=== PATIENT | male | born 1960 | race Caucasian/White ===

== ENCOUNTER 2023-11-09 15:51 | Inpatient (IN) | payer OTHER, SELFPAY ==
[2023-11-09] VITALS (16 sets, daily range): BP systolic 77–105; BP diastolic 52–68; BMI 22.4
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
[2023-11-09 13:13] LABS: Hematocrit 31.3 % (39.0-52.0); Hemoglobin 11.3 g/dL (13.0-18.0); Mean Corp Hgb Conc. 36.1 g/dL (33.0-37.0); Mean Corpuscular Hgb 29.5 pg (27.0-31.0); Mean Corpuscular Volume 81.7 fL (80.0-94.0); Mean Platelet Volume 8.2 fL (7.4-10.4); Platelet Count 134 10^3/uL (130-400); Red Blood Cell Count 3.83 10^6/uL (4.70-6.10); Red Cell Dist. Width 12.9 % (11.5-14.5)
[2023-11-09] MEDS: NSS 1000 IV ×3 (13:23→20:47)
[2023-11-09 13:26] LABS: ALT (SGPT) 25 U/L (0-50); AST (SGOT) 53 U/L (17-59); Albumin 3.9 g/dl (3.5-5.0); Alkaline Phosphatase 128 U/L (38-126); Blood Urea Nitrogen 14 mg/dl (9-20); Calcium 9.1 mg/dl (8.4-10.2); Carbon Dioxide 22 mmol/L (22-30); Chloride 91 mmol/L (98-107); Estimated Creatinine Clearance 81 ml/min; Glucose 105 mg/dl (70-99); Potassium 3.8 mmol/L (3.5-5.1); Sodium 125 mmol/L (135-145); Total Bilirubin 1.1 mg/dl (0.2-1.3); eGFR > 60.00
[2023-11-09] MEDS: TYLENOL 1000 MG PO (13:30)
[2023-11-09 13:52] LABS: Lactic Acid 4.7 mmol/L (0.7-2.0)
[2023-11-09 13:56] LABS: Urine Albumin 3+ (Neg - Trace); Urine Bilirubin Negative (Negative); Urine Character Bloody (Clear); Urine Color Red; Urine Glucose Negative (Negative); Urine Ketone Trace (Negative); Urine Leukocyte Trace (Negative); Urine Nitrite Negative (Negative); Urine Occult Blood 4+ (Negative); Urine Specific Gravity 1.015 (<1.030); Urine Urobilinogen Negative (Neg - 1+)
[2023-11-09 14:23] LABS: Absolute Neutrophils -Man Diff 2.8 10^3/uL (1.4-6.5); Band Neutrophils 12 % (0-3); Eosinophils 1 % (0-6); Lymphocytes 4 % (20-51); Platelets Checked Yes; Segmented Neutrophils 83 % (42-75)
[2023-11-09 14:24] LABS: Anisocytosis 1+; Hypochromasia 1+; Normal RBC Morphology No; Polychromasia 1+; Target Cells 1+
[2023-11-09 14:25] LABS: Total Cells Counted 100
[2023-11-09 14:39] LABS: Urine Mucus Many
[2023-11-09] MEDS: ZOSYN 50 IV ×2 (14:40→20:44)
[2023-11-09 14:41] LABS: Urine Red Blood Cell >100 /HPF (0-2)
[2023-11-09 14:46] LABS: Urine Bacteria Many (Negative)
[2023-11-09 15:03] LABS: COVID-19 Antigen Negative (Negative)
--- NOTE | 2023-11-09 15:03 | EDRN ---
Pt given cup of water at this time after okayed by Dr. Ozuna.
--- NOTE | 2023-11-09 15:04 | HPS.HSE ---
Addendum entered and electronically signed by Rick Guevara MD 11/10/23 06:13:
I saw and examined the patient.
The ANESTHESIOLOGY TEACHER or PA's note was reviewed and I agree with the note.
Comment:
2-year-old male with history of seizures, chronic Resendiz catheter, hypertension, alcohol abuse, presented to us with generalized weakness. Patient was not able to empty his bladder yesterday. patient has chronic Resendiz cath and he usually empty his
bladder once or twice a day. today it was bloody in AM.
Physical Exam
General: Well Developed, Well Nourished and No Apparent Distress
HEENT: NormoCephalic, Moist mucous membranes and Atraumatic
Respiratory: Clear
Cardiac: S1/S2 and Regular Rhythm; No Murmur or Rub
GI: Soft, Non Tender, Non Distended and Normal Bowel Sounds; No Organomegaly
Rectal: no rectal bleeding
Musculoskeletal: No Clubbing, No Cyanosis and No Edema
Skin: No Rash
Neuro: AO x 3 and Nonfocal/grossly intact
Psych: Calm
# Severe sepsis/ septic shock likely from catheter associated urinary tract infection
#hematuria
#hxt of neurogenic bladder
-WBC 3.0, lactic 4.7, temperature 103.1, hypotensive, tachycardic
-Chest x-ray pending
-COVID/flu negative
-Blood and urine culture sent from ER
-iv vanco and Zosyn
-trend lactic
-monitor wbc
-fluids continued
-Resendiz cath to gravity, irrigate as needed for bloody urine and clots
-Tylenol prn for fever
-renal US ordered
-monitor cbc in am
-IV Levophed PRN
- Stress dose of steroid
-Appreciate urology help
# Anemia of chronic disease
-Hemoglobin stable at 11.3
-No active bleeding
-Continue to monitor
# Acute on chronic hyponatremia likely dehydration
-Sodium 125
-Fluids continued
-Continue to monitor BMP
#alcohol abuse
-drinks 4-5 beers daily
-MSAS score
-alcohol protocol
#psychotic disorder
-carbamazepine continued
#Hypothyroidism
cont Synthroid.
#Chronic hypotension
Cont fludrocortisone and midodrine
#DVT � prophylaxis Lovenox
#Full code
Total critical time spent to see patient, examine the patient on the floor, review data and lab results, discuss treatment plan with patient, ER doctor, urologist, nursing staff around 85 minutes
�
Original Note:
Family Physician
-
Family Physician: Timothy Blake
Chief Complaint
-
generalized weakness
dry heaves
vomitting
History of Present Illness
62-year-old male with history of seizures, chronic Resendiz catheter, hypertension, alcohol abuse, presented to us with generalized weakness. Patient was not able to empty his bladder yesterday. patient has chronic Resendiz cath and he usually empty his
bladder once or twice a day. today it was bloody in AM. patient was evaluated by urology in the morning. they exchanged cath and capped with valve. . but patient continued to have chills, rigors. he noted blood in the tube again. patient stated
nauseous, dry heaves and vomited. Patient denies congestion or cough. No abdominal pain. denied SMYTH,dizzy or syncopal episode. denied chest pain, sob.
noted in severe sepsis. admitting for further management. received Zosyn, vanco and fluids in Er. admitting for further management.
Medical History
Past Medical History
Past Medical History: Reports Other
Additional Past Medical History:
hypothyroidism
lumbago with sciatica
alcohol dependence
hypotension
pancytopenia
anemia
htn
anxiety
insomnia
polyarthritis
prostate ca
allergic rhinitis
vesicoureteral reflux
psychotic disorder
urinary retention
neurogenic bladder
Past Surgical History: Reports Other
Additional Past Surgical History:
humerus surgery
cataract surgery
back surgery
femur surgery
Social History
Tobacco: Non-smoker
Alcohol: Daily (4-5 beers daily)
Drug: None
Personal: Single
Living: With Family
Employment: Employed
Family History
Family History: Not pertinent
Allergies / Home Medications
Allergies reflects when Allergies were last updated in [facility].
Home Medications with original date entered in [facility]
Allergy/Medication List:
Allergies
Allergy/AdvReac Type Severity Reaction Status Date / Time
No Known Allergies Allergy Verified 11/09/23 12:21
Home Medications
carbamazepine 100 mg tablet,extended release,12 hr 200 mg (2 x 100 mg) PO HS 30 days 11/25/18
levothyroxine 50 mcg tablet 50 mcg PO DAILY@0700 30 days 11/25/18
carbamazepine 100 mg tablet,extended release,12 hr 100 mg PO DAILY Seizures 12/18/18
gabapentin 100 mg capsule 100 mg PO TID Neurological Condition 04/23/21
midodrine 5 mg tablet 5 mg PO BID Blood pressure 04/23/21
fludrocortisone 0.1 mg tablet 0.1 mg PO DAILY INFLAMMATION 10/22/22
acetaminophen 650 mg tablet,extended release (Tylenol Arthritis Pain) 650 mg PO Q6HPRN PRN mild pain 11/09/23
cyanocobalamin (vitamin B-12) 1,000 mcg tablet 1,000 mcg PO DAILY 11/09/23
oxybutynin chloride 10 mg tablet,extended release 24 hr 10 mg PO DAILY 11/09/23
riboflavin (vitamin B2) 50 mg tablet 50 mg PO DAILY 11/09/23
thiamine HCl (vitamin B1) 100 mg tablet 100 mg PO DAILY 11/09/23
Review of Systems
-
Constitutional: Reports Fever, Fatigue and Chills
EENT: Reports No Symptoms
Respiratory: Reports No Symptoms
Cardiac: Reports No Symptoms
Abdomen/GI: Reports No Symptoms
: Reports Bleeding
Musculoskeletal: Reports No Symptoms
Skin: Reports No Symptoms
Neurological: Reports Weakness
Endocrine: Reports No Symptoms
Hematologic/Lymphatic: Reports No Symptoms
Psych: Reports No Symptoms
Physical Exam
Vital Signs
Vital Signs
Temp Pulse Resp BP Pulse Ox
103.1 F H 128 34 96/53 93
11/09/23 12:57 11/09/23 13:30 11/09/23 13:30 11/09/23 13:00 11/09/23 13:00
Physical Exam
General: Well Developed, Well Nourished and No Apparent Distress
HEENT: NormoCephalic, Moist mucous membranes and Atraumatic
Respiratory: Clear
Cardiac: S1/S2 and Regular Rhythm; No Murmur or Rub
GI: Soft, Non Tender, Non Distended and Normal Bowel Sounds; No Organomegaly
Rectal: Deferred by Provider
Musculoskeletal: No Clubbing, No Cyanosis and No Edema
Skin: No Rash
Neuro: AO x 3 and Nonfocal/grossly intact
Psych: Calm
Laboratory Results
-
11/09/23 13:02
11/09/23 13:02
Laboratory Results
Lactic Acid 4.7 mmol/L (0.7-2.0) H* 11/09/23 13:02
Total Bilirubin 1.1 mg/dl (0.2-1.3) 11/09/23 13:02
AST 53 U/L (17-59) 11/09/23 13:02
ALT 25 U/L (0-50) 11/09/23 13:02
Alkaline Phosphatase 128 U/L (38-126) H 11/09/23 13:02
Data Reviewed
-
Lab Data: Labs Reviewed by me
Impression/Plan
-
# Severe sepsis likely from catheter associated urinary tract infection
#hematuria
#hxt of neurogenic bladder
-WBC 3.0, lactic 4.7, temperature 103.1, hypotensive, tachycardic
-Chest x-ray pending
-COVID/flu negative
-Blood and urine culture sent from ER
-iv vanco and Zosyn
-trend lactic
-monitor wbc
-fluids continued
-Resendiz cath to gravity, irrigate as needed for bloody urine and clots
-Tylenol prn for fever
-renal US ordered
-monitor cbc in am
-urology consulted
# Anemia of chronic disease
-Hemoglobin stable at 11.3
-No active bleeding
-Continue to monitor
# Acute on chronic hyponatremia likely dehydration
-Sodium 125
-Fluids continued
-Continue to monitor BMP
#alcohol abuse
-drinks 4-5 beers daily
-MSAS score
-alcohol protocol
#psychotic disorder
-carbamazepine continued
#Hypothyroidism
cont Synthroid.
#Chronic hypotension
Cont fludrocortisone and midodrine
#DVT � prophylaxis Lovenox
#Full code
[2023-11-09] MEDS: VANCOCIN 540 MG IV (16:04)
[2023-11-09 18:05] LABS: Lactic Acid 3.1 mmol/L (0.7-2.0)
[2023-11-09] MEDS: NSS 500 IV ×2 (20:01→22:56)
[2023-11-09] MEDS: ProAmatine 5 MG PO (20:43)
[2023-11-09] MEDS: DITROPAN 5 MG PO (20:43)
[2023-11-09] MEDS: THIAMINE INJECTION 200 MG IV (20:44)
--- NOTE | 2023-11-09 21:00 | PHA.VAN.IN ---
Assessment
- Assessment
Renal Function: Appears elevated from baseline (11/15/18 BASELINE SCR: 0.6)
Concomitant Antimicrobials: ZOSYN
- Previous Dosing Experience
Previous Regimen: 1250MG IV Q12H
Date of Regimen: 11/12/18
Provided Trough of: UNKNOWN
Provided AUC of: UNKNOWN
Patient's SCR is: Elevated compared to previous dosing experience (11/12/18 SCR = 0.6)
Patient's weight is: Decreased compared to previous dosing experience (11/12/18 WT = 81.9 KG)
Pharmacokinetics Vancomycin I
- -
Patient Age: 62
Patient Sex: Male
Vancomycin Day #: 1
Indication: Genito-Urinary Tract (SEPSIS/CAUTI)
Requesting Provider: TRACY
Height / Weight:
Height 6 ft
Actual Weight 75 kg
- Vital Signs / Lab Results
Temp Pulse Resp BP Pulse Ox
98.7 F 97 26 83/52 93
11/09/23 16:06 11/09/23 20:43 11/09/23 19:30 11/09/23 20:43 11/09/23 14:00
Lab Results - Hematology
11/09/23
13:02
WBC 3.0 L
Band Neutrophils 12 H
Lab Results - Chemistry
11/09/23
13:02
BUN 14
Creatinine 1.0
Estimated Creat Clear 81
Albumin 3.9
11/09/23 11/09/23
13:02 17:42
Lactic Acid 4.7 H* 3.1 H
Lab Results - Urine
11/09/23
13:25
Urine Nitrite (Reflex) Negative
Leukocyte Esterase Rfl Trace A
Urine WBC (Reflex) 6-10
Ur Squamous Epith Cells 6-10
Urine Bacteria (Reflex) Many A
Microbiology Results
04/15/24 14:32 Influenza Types A & B (RANGEL) - Final
Nasal Swab Negative for Influenza A & B, NAAT
Negative results must be combined with clinical observations
and patient history.
Nucleic Acid Amplification test (NAAT)performed on the
[employer] platform.
[2023-11-09 22:00] LABS: INR 2.13; PT 23.7 Sec (11.4-14.6)
[2023-11-09 22:01] LABS: APTT 62.1 Sec (23.4-35.0); Lactic Acid 3.5 mmol/L (0.7-2.0)
[2023-11-09 22:06] LABS: Alcohol < 10 mg/dl; GGTP 206 U/L (15-73); Magnesium 0.7 mg/dl (1.6-2.3); Phosphorus 2.2 mg/dl (2.5-4.5)
[2023-11-09 22:11] LABS: B-Hydroxybutyrate 0.16 mmol/L (0.02-0.27)
[2023-11-09 22:21] LABS: Amphetamines Negative (Negative); Barbiturates Negative (Negative); Benzodiazepines Negative (Negative); Buprenorphine Negative (Negative); Cocaine Negative (Negative); Marijuana Negative (Negative); Methadone Negative (Negative); Methamphetamines Negative (Negative); Opiates Negative (Negative); Phencyclidine Negative (Negative); Tricyclic Antidepressants Negative (Negative)
[2023-11-09] MEDS: MAGNESIUM SULFATE 50 IV (22:22)
[2023-11-09] MEDS: NEURONTIN 100 MG PO (22:55)
[2023-11-09] MEDS: TEGRETOL XR (EXTENDED RELEASE) 200 MG PO (22:55)
[2023-11-10] VITALS (56 sets, daily range): BP systolic 71–120; BP diastolic 46–87; PULSE 95; O2SAT 96; BMI 23.2
[2023-11-10] MEDS: LEVOPHED 250 IV (00:25)
[2023-11-10] MEDS: SOLU-CORTEF 100 MG IV ×4 (00:46→23:09)
--- NOTE | 2023-11-10 01:18 | W.PN.UPDATE ---
Update Note
Progress Note Update
Patient noted with intractable hypotension, although asymptomatic, after 3 L of NS IVF boluses. Will add stress dose IV steroids as well as low dose levophed infusion.
[2023-11-10] MEDS: ZOSYN 50 IV ×4 (02:22→19:46)
[2023-11-10] MEDS: NSS 1000 IV ×2 (02:23→14:56)
[2023-11-10 02:41] LABS: Hematocrit 24.7 % (39.0-52.0); Hemoglobin 9.1 g/dL (13.0-18.0); Mean Corp Hgb Conc. 36.8 g/dL (33.0-37.0); Mean Corpuscular Hgb 30.1 pg (27.0-31.0); Mean Corpuscular Volume 81.8 fL (80.0-94.0); Red Blood Cell Count 3.02 10^6/uL (4.70-6.10); Red Cell Dist. Width 13.2 % (11.5-14.5); White Blood Cell Count 15.9 10^3/uL (4.8-10.8)
--- NOTE | 2023-11-10 02:55 | PTCARENOTE ---
Received pt from ED RN. Pt is AAOx3, flat/with drawn, MSAS protocol. NSR on the monitor. On RA O2 sat 93%, lungs diminished. Incont of stool. Resendiz in place, blood tinged, hygiene provided. Full body red rash, pt states 'he's had it for awhile and
it's itchy'. Wounds on his sacrum/butt. IVF infusing @ 150 ml/hr. Received pt on 2mcg/min of levo, increased to 3mcg/min (see worklist). CHG bath provided. Pt is laying comfortable in bed with call weiss in reach.
[2023-11-10 03:04] LABS: Blood Urea Nitrogen 22 mg/dl (9-20); Calcium 7.9 mg/dl (8.4-10.2); Carbon Dioxide 18 mmol/L (22-30); Chloride 96 mmol/L (98-107); Estimated Creatinine Clearance 65 ml/min; Glucose 103 mg/dl (70-99); Lactic Acid 3.4 mmol/L (0.7-2.0); Potassium 4.1 mmol/L (3.5-5.1); Sodium 123 mmol/L (135-145); eGFR > 60.00
[2023-11-10 05:28] LABS: Mean Platelet Volume 9.2 fL (7.4-10.4); Platelet Count 71 10^3/uL (130-400)
[2023-11-10] MEDS: VANCOCIN 200 IV (05:46)
[2023-11-10] MEDS: SYNTHROID 50 MCG PO (06:07)
--- NOTE | 2023-11-10 06:14 | W.PN.UPDATE ---
Update Note
Progress Note Update
Billing purposes for 11/09/2023
--- NOTE | 2023-11-10 06:32 | W.PN.HOSP.TC ---
Today's Communication/Plan
-
.
Assessment / Plan
Assessment / Plan
Physical Exam
General: Well Developed, Well Nourished and No Apparent Distress
HEENT: NormoCephalic, Moist mucous membranes and Atraumatic
Respiratory: Clear
Cardiac: S1/S2 and Regular Rhythm; No Murmur or Rub
GI: Soft, Non Tender, Non Distended and Normal Bowel Sounds; No Organomegaly
Rectal: no rectal bleeding
Musculoskeletal: No Clubbing, No Cyanosis and No Edema
Skin: No Rash
Neuro: AO x 3 and Nonfocal/grossly intact
Psych: Calm
# Severe sepsis/ septic shock likely from catheter associated urinary tract infection
#hematuria/ hxt of neurogenic bladder
-WBC 3.0, lactic 4.7, temperature 103.1, hypotensive, tachycardic
-COVID/flu negative
-Blood and urine culture sent from ER
-iv vanco and Zosyn
-trend lactic
-monitor wbc
-fluids continued
-Resendiz cath to gravity, irrigate as needed for bloody urine and clots
-Tylenol prn for fever
-Renal ultrasound did not show hydronephrosis, nonobstructive right renal stone.
-IV Levophed PRN, try to wean off, increase the dose of midodrine to
- Stress dose of steroid for 24 hours then wean down
-Appreciate urology help
# Bacteremia/sepsis
Continue with Zosyn and vancomycin. Repeat blood culture
Appreciate ID help
# Anemia of chronic disease. Hemoglobin on admission around 11, partly hemoconcentration from sepsis. Mild hematuria with element of acute blood loss anemia.
-Hemoglobin level 8-9 outside the hospital
-Continue to monitor
#Hypomagnesemia
Replace
# Acute kidney injury with creatinine baseline around 0.6-0.7. Creatinine today 1.3. Continue with IV fluid and monitor
# Acute on chronic hyponatremia likely dehydration
-Sodium 123
-Fluids continued, check serum and urine osmolality. Fluid restriction-
-Continue to monitor BMP
#alcohol abuse
No signs of DT. Patient is lucid and oriented. No tremor
-drinks 4-5 beers daily
-MSAS score
-alcohol protocol
#psychotic disorder
-carbamazepine continued
#Hypothyroidism
cont Synthroid.
#Chronic hypotension
On home fludrocortisone and midodrine
#DVT � prophylaxis Lovenox
#Full code
Total time spent to see patient, examine the patient on the floor, review data and lab results, discuss treatment plan with patient, nursing staff around 55 minutes
Anticipated Discharge: > 48 hours
Subjective/Interval History
-
Date of Service: November 10, 2023
Objective Data
-
Labs:
Laboratory Results
11/09/23 11/10/23
21:38 02:33
WBC 15.9 H
Hgb 9.1 L
Hct 24.7 L
Plt Count 71 L D
PT 23.7 H
INR 2.13
APTT 62.1 H
Sodium 123 L
Potassium 4.1
Chloride 96 L
Carbon Dioxide 18 L
BUN 22 H
Creatinine 1.3
Glucose 103 H
Calcium 7.9 L
Vital Signs:
Vital Signs
Temp Pulse Resp BP Pulse Ox
100.2 F 91 24 95/70 96
11/10/23 02:04 11/10/23 06:00 11/10/23 06:00 11/10/23 06:00 11/10/23 06:00
I&O
11/08/23 11/09/23 11/10/23
06:59 06:59 06:59
Intake Total 960 / 960
Output Total 800 / 800
Balance 160 / 160
[2023-11-10 06:52] LABS: Lactic Acid 3.9 mmol/L (0.7-2.0)
[2023-11-10 07:02] LABS: Magnesium 1.4 mg/dl (1.6-2.3)
[2023-11-10] MEDS: ProAmatine 10 MG PO ×3 (08:23→17:36)
[2023-11-10] MEDS: TEGRETOL XR (EXTENDED RELEASE) 100 MG PO (08:24)
[2023-11-10] MEDS: THIAMINE INJECTION 200 MG IV ×2 (08:24→19:46)
[2023-11-10] MEDS: FLORINEF 0.100000000000000006 MG PO (08:24)
[2023-11-10] MEDS: DITROPAN 5 MG PO ×2 (08:24→19:46)
[2023-11-10] MEDS: NEURONTIN 100 MG PO ×3 (08:24→21:15)
--- NOTE | 2023-11-10 09:19 | PHA.VAN.FU ---
Vancomycin Assessment / Plan
- Assessment
Renal Function: SCR Increasing (BUN slightly increased as well)
WBC's are: Trending Up
In the past 24 hrs, patient has been: Febrile
Concomitant Antimicrobials: piperacillin/tazobactam
- Dosing Plan
Adjust Regimen to: dosing by level given increase in SCR & BUN
Dosing Comments: give additional 500mg x1 tonight to ensure levels maintained
- Monitoring Plan
Random Level: 11/10 0600
- Follow Up
Pharmacy will continue to follow.
Vancomycin Follow UP
- -
Patient Age: 62
Patient Sex: Male
Vancomycin Day #: 2
Indication: Genito-Urinary Tract
Requesting Provider: Baltazar Bryan
Pertinent Antimicrobial Allergies:
NKDA
Height / Weight:
Height 6 ft
Actual Weight 77.5 kg
- Vital Signs / Lab Results
Temp Pulse Resp BP Pulse Ox
98.2 F 98 17 98/67 96
11/10/23 07:20 11/10/23 08:23 11/10/23 06:30 11/10/23 08:23 11/10/23 06:30
Lab Results - Hematology
11/09/23 11/10/23
13:02 02:33
WBC 3.0 L 15.9 H
Band Neutrophils 12 H
Lab Results - Chemistry
11/09/23 11/10/23
13:02 02:33
BUN 14 22 H
Creatinine 1.0 1.3
Estimated Creat Clear 81 65
Albumin 3.9
11/09/23 11/09/23 11/09/23
13:02 17:42 21:38
Lactic Acid 4.7 H* 3.1 H 3.5 H
11/10/23 11/10/23
02:33 06:26
Lactic Acid 3.4 H 3.9 H
Lab Results - Urine
11/09/23
13:25
Urine Nitrite (Reflex) Negative
Leukocyte Esterase Rfl Trace A
Ur Squamous Epith Cells 6-10
Microbiology Results
11/09/23 13:26 Blood Culture - Preliminary
Blood/Venous Positive culture in progress
Gram Stain - Final
11/09/23 13:02 Blood Culture - Preliminary
Blood/Venous Positive culture in progress
Gram Stain - Final
11/09/23 14:32 Influenza Types A & B (RANGEL) - Final
Nasal Swab Negative for Influenza A & B, NAAT
Negative results must be combined with clinical observations
and patient history.
Nucleic Acid Amplification test (NAAT)performed on the
[employer] platform.
--- NOTE | 2023-11-10 09:33 | PTCARENOTE ---
[facility] shift [facility]. Patient resting comfortably in bed. AAO, VSS on 3mcg/min of Levo and will attempt to wean off. Midodrine increased to 10mg TID from 5mg. IV @ 150mL/hr, IV ABX. Dressings, CDI. Call weiss in reach.
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
[2023-11-10] MEDS: MAGNESIUM SULFATE 100 IV (12:17)
--- NOTE | 2023-11-10 13:18 | WOUNDNOTE ---
SACRUM BUTTOCKS AND L THIGH WITH PHOTO FLASH
--- NOTE | 2023-11-10 13:19 | WOUNDNOTE ---
L BUTTOCK/ISCHIUM AND POSTERIOR THIGH
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
[2023-11-10 16:00] LABS: Osmolality Urine 255 mOsm/kg (300-900)
[2023-11-10 16:08] LABS: Lactic Acid 2.9 mmol/L (0.7-2.0)
[2023-11-10 16:13] LABS: Urine Sodium < 5 mmol/L (30-90)
[2023-11-10 16:27] LABS: Osmolality Serum 270 mOsm/kg (275-300)
[2023-11-10] MEDS: VANCOCIN HCL 500 MG 100 IV (17:36)
[2023-11-10] MEDS: NSS IV (18:27)
[2023-11-10] MEDS: ATIVAN 0.5 MG PO (21:15)
[2023-11-10] MEDS: TEGRETOL XR (EXTENDED RELEASE) 200 MG PO (21:15)
[2023-11-11] VITALS (14 sets, daily range): BP systolic 90–130; BP diastolic 56–92; BMI 22.7
--- NOTE | 2023-11-11 00:29 | PTCARENOTE ---
assumed care of patient, pt AAOx3- no complaints, pt incontinent of stool, full bed bath given. krueger intact draining madina/blood urine. care ongoing.
[2023-11-11] MEDS: ZOSYN 50 IV ×2 (01:37→08:46)
--- NOTE | 2023-11-11 04:44 | DOWNTIME ---
There was a [employer] Client Control Panel Tester Downtime on 11/11/2023 from 0100 to 11/11/2023 at 0439. Downtime documentation of patient's care, including medication administrations, has been reconciled in the electronic record per guidelines. Refer to the
patient's paper chart under the miscellaneous tab to see printed paper medication records and downtime forms.
[2023-11-11] MEDS: SYNTHROID 50 MCG PO (05:07)
[2023-11-11 05:31] LABS: Hematocrit 26.1 % (39.0-52.0); Hemoglobin 9.4 g/dL (13.0-18.0); Mean Corpuscular Volume 83.4 fL (80.0-94.0); Mean Platelet Volume 10.8 fL (7.4-10.4); Platelet Count 58 10^3/uL (130-400); Red Blood Cell Count 3.13 10^6/uL (4.70-6.10); Red Cell Dist. Width 13.2 % (11.5-14.5); White Blood Cell Count 26.2 10^3/uL (4.8-10.8)
[2023-11-11 05:56] LABS: Blood Urea Nitrogen 27 mg/dl (9-20); Calcium 8.4 mg/dl (8.4-10.2); Carbon Dioxide 21 mmol/L (22-30); Chloride 100 mmol/L (98-107); Estimated Creatinine Clearance 82 ml/min; Glucose 96 mg/dl (70-99); Magnesium 1.6 mg/dl (1.6-2.3); Potassium 3.9 mmol/L (3.5-5.1); Sodium 127 mmol/L (135-145); eGFR > 60.00
--- NOTE | 2023-11-11 06:18 | W.PN.HOSP.TC ---
Addendum entered and electronically signed by Rick Guevara MD 11/11/23 17:49:
Addendum
US of abdomen c/w hepatic cirrhosis, GB stones, possible fluid /sludge/inflammation. Plan for HIDA scan. No abd pain on tenderness on exam. This can explain polymicrobial bacteremia.
End
Addendum entered and electronically signed by Rick Guevara MD 11/11/23 13:54:
Addendum
Sacral ulcer stage 3 vs. stage 2 pressure injury AND left buttock/ischium stage 2 pressure injury, POA
End
Original Note:
Today's Communication/Plan
-
.
Assessment / Plan
Assessment / Plan
Physical Exam
General: Well Developed, Well Nourished and No Apparent Distress
HEENT: NormoCephalic, Moist mucous membranes and Atraumatic
Respiratory: Clear
Cardiac: S1/S2 and Regular Rhythm; No Murmur or Rub
GI: Soft, Non Tender, Non Distended and Normal Bowel Sounds; No Organomegaly
Rectal: no rectal bleeding
Musculoskeletal: No Clubbing, No Cyanosis and No Edema
Skin: No Rash
Neuro: AO x 3 and Nonfocal/grossly intact
Psych: Calm
# Severe sepsis/ septic shock due to catheter associated urinary tract infection
#hematuria/ hxt of neurogenic bladder
-WBC 3.0, lactic 4.7, temperature 103.1, hypotensive, tachycardic
-COVID/flu negative
-Blood and urine culture sent from ER
-s/p IV vanco and Zosyn, c/w Zosyn now
-lactic acid normalized.
-monitor wbc, WBC higher due to steroid therapy.
- Stopped IVF.
-Resendiz cath to gravity, irrigate as needed for bloody urine and clots, no more hematuria.
-Tylenol prn for fever
-Renal ultrasound did not show hydronephrosis, nonobstructive right renal stone.
- Off Levophed PRN, increased the dose of midodrine to
- Stress dose of steroid for 24 hours then wean down to normal level.
-Appreciate urology help
# Bacteremia/sepsis with gram negative bacilli
Continue with Zosyn and vancomycin. Repeat blood culture 11/09 pending
Appreciate ID help
# Patient reported 6 months duration of loss of appetite. No significant weight loss.
No abdominal pain.
Daily alcohol intake
Possible gastritis/liver disease
Check abdominal ultrasound and can follow-up with a primary care doctor
#Thrombocytopenia secondary to sepsis.
Monitor platelet count. No bruising or active bleeding
# Anemia of chronic disease. Hemoglobin on admission around 11, partly hemoconcentration from sepsis. Mild hematuria with element of acute blood loss anemia.
-Hemoglobin level 8-9 outside the hospital
-Continue to monitor
#Hypomagnesemia
Replaced with intravenous, continue with oral magnesium
# Acute kidney injury with creatinine baseline around 0.6-0.7. Creatinine today 1.0 . s/p IV fluid and monitor
# Insomnia. Patient was given 0.5 mg Ativan. Did not help. Will increase to 12 mg at nighttime
# Acute on chronic hyponatremia likely dehydration
-Sodium 127
-Fluids continued, check serum and urine osmolality. Fluid restriction-
-Continue to monitor BMP
#alcohol abuse
No signs of DT. Patient is lucid and oriented. No tremor
-drinks 4-5 beers daily
-MSAS score
-alcohol protocol
#psychotic disorder
-carbamazepine continued
#Hypothyroidism
cont Synthroid.
#Chronic hypotension
On home fludrocortisone and midodrine
#DVT � prophylaxis Lovenox
#Full code
Total time spent to see patient, examine the patient on the floor, review data and lab results, discuss treatment plan with patient, nursing staff around 59 minutes
Anticipated Discharge: > 48 hours
Subjective/Interval History
-
Date of Service: November 11, 2023
Did not sleep well, need more medicine
no pain issues
reports chronic loss of appetite.
Objective Data
-
Labs:
Laboratory Results
11/11/23
05:04
WBC 26.2 H
Hgb 9.4 L
Hct 26.1 L
Plt Count 58 L
Sodium 127 L
Potassium 3.9
Chloride 100
Carbon Dioxide 21 L
BUN 27 H
Creatinine 1.0
Glucose 96
Calcium 8.4
Vital Signs:
Vital Signs
Temp Pulse Resp BP Pulse Ox
97.5 F 81 23 108/73 92
11/11/23 03:25 11/11/23 06:00 11/11/23 06:00 11/11/23 06:00 11/11/23 06:00
I&O
11/09/23 11/10/23 11/11/23
06:59 06:59 06:59
Intake Total 960 / 960 2560 / 2560
Output Total 800 / 800 1750 / 1750
Balance 160 / 160 810 / 810
[2023-11-11] MEDS: PROTONIX 40 MG PO (08:45)
[2023-11-11] MEDS: ProAmatine 10 MG PO ×3 (08:45→17:42)
[2023-11-11] MEDS: FLORINEF 0.100000000000000006 MG PO (08:45)
[2023-11-11] MEDS: NEURONTIN 100 MG PO ×3 (08:45→21:46)
[2023-11-11] MEDS: DITROPAN 5 MG PO ×2 (08:45→21:46)
[2023-11-11] MEDS: THIAMINE INJECTION 200 MG IV (08:46)
[2023-11-11] MEDS: TEGRETOL XR (EXTENDED RELEASE) 100 MG PO (08:46)
--- NOTE | 2023-11-11 09:45 | PTCARENOTE ---
Patient received from hourly shift. Patient resting comfortably in bed. AAO, VSS and still off Levo. Continuing Midodrine increase to 10mg TID. IVF discontinued, IV ABX continuing. Dressings, CDI. Possible downgrade today? Call weiss in reach.
--- NOTE | 2023-11-11 10:07 | W.PN.ID1 ---
Date of Service
Date of Service: November 11, 2023
Today's Communication
Changed to meropenem. Await further culture results.
Assessment / Plan
Complicated urinary tract infection
Polymicrobial bacteremia
Leukocytosis
- rising
Fever
Hypothyroidism
HTN
Arthritis
Neurogenic bladder
Seizure disorder
Recommendations:
Change Zosyn to meropenem given rising white count.
Following repeat blood cultures to assess clearance.
Await further culture data to guide further antimicrobial selection and de-escalation.
Monitor white count and temperature curve.
If white count continues to trend upward, may consider CT pelvic area to assess for other pathology.
����������������������������������������������������������
Chief Complaint
-: Leukocytosis, UTI and Bacteremia
Subjective / Review of Systems
Patient seen and examined. Notes some ongoing bleeding around his Resendiz catheter.
Review of Systems: No Fever and No Chills
Vital Signs / Physical Exam
Vital Signs
Vital Signs
Temp Pulse Resp BP Pulse Ox
97.9 F 77 23 119/83 95
11/11/23 07:35 11/11/23 08:45 11/11/23 06:00 11/11/23 08:45 11/11/23 09:22
Physical Exam
Constitutional: No Acute Distress, Comfortable and Non-toxic
Eyes: Sclera Anicteric
Cardiovascular: S1/S2; Negative S3/S4
Pulmonary: Non Labored
Genito-Urinary: Resendiz (To bag) and Clear Urine; Negative Turbid Urine or Hematuria
Extremities: Negative Edema, Cyanosis or Erythema
Neurological: Awake and Alert
Psychological: Calm
Objective Data
Lab Data
Lab Results
11/11/23 05:04
11/11/23 05:04
PT 23.7 Sec (11.4-14.6) H 11/09/23 21:38
INR 2.13 11/09/23 21:38
APTT 62.1 Sec (23.4-35.0) H 11/09/23 21:38
Estimated Creat Clear 82 ml/min 11/11/23 05:04
Lactic Acid 2.0 mmol/L (0.7-2.0) 11/10/23 20:08
Total Bilirubin 1.1 mg/dl (0.2-1.3) 11/09/23 13:02
GGT 206 U/L (15-73) H 11/09/23 21:38
AST 53 U/L (17-59) 11/09/23 13:02
ALT 25 U/L (0-50) 11/09/23 13:02
Alkaline Phosphatase 128 U/L (38-126) H 11/09/23 13:02
Most recent labs reviewed.
Micro Results:
11/09/23 13:25 Urine Culture - Final
Urine
11/10/23 02:32 MRSA Screen - Final
Nose No Methicillin Resistant Staphylococcus aureus isolated.
11/10/23 16:56 Blood Culture - Pending
Blood/Venous
11/10/23 15:29 Blood Culture - Pending
Blood/Venous
11/09/23 13:26 Blood Culture - Preliminary
Blood/Venous Positive culture in progress
Gram Stain - Final
11/09/23 13:02 Blood Culture - Preliminary
Blood/Venous Positive culture in progress
Gram Stain - Final
11/09/23 14:32 Influenza Types A & B (RANGEL) - Final
Nasal Swab Negative for Influenza A & B, NAAT
Negative results must be combined with clinical observations
and patient history.
Nucleic Acid Amplification test (NAAT)performed on the
[employer] platform.
Imaging:
11/09/2023 Renal ultrasound: No hydronephrosis noted. No abnormal solid or complex renal masses. There are 2 echogenic areas in the bladder measuring 1.2 and 1.6 cm, likely bladder stones. Bladder is not well-distended. The urinary catheter is
present.
Care Review
Plan reviewed with: Other (Microbiology)
[2023-11-11] MEDS: STERILE WATER FOR INJECTION 10 ML IV ×3 (12:51→23:00)
[2023-11-11] MEDS: MERREM 500 MG IV ×3 (12:53→23:00)
--- NOTE | 2023-11-11 13:41 | PN.CDI ---
CDI
- -
CDI:
Physician Documentation Request
Admit Date: 11/09/23 15:51
Dear Doctor Ismael,
Please review the following and provide your response in the progress notes.
Clinical Indicators:
11/10/23 13:20 (created 11/10/23 13:27) - Wound Note
#Wound Location and type/assessment:
#Patient admitted with:
#Healing sacral ulcer stage 3 vs stage 2 PI, pink base, raised macerated edges.
#L buttock/ischium with healing stage 2 PI, mostly scar visible, scant red dry skin.
Physician documentation of the type and location of wounds is required for compliant documentation. Based on the above clinical findings and your assessment, please provide the following in your progress note:
Sacral ulcer stage 3 vs. stage 2 pressure injury AND left buttock/ischium stage 2 pressure injury, POA
Other(please specify and document your clinical findings)
1. Location of the ulcer/wound, including laterality.
2. Type (etiology) of ulcer/wound:
- Diabetic ulcer
- Arterial (ischemic) ulcer
- Traumatic wound
- Venous stasis ulcer
- Pressure (decubitus) ulcer
3. If a pressure ulcer, please also include the stage* of the ulcer:
- Stage 1 - Skin intact, non-blanchable redness
- Stage 2 - Partial thickness loss of dermis, includes intact or open blister
- Stage 3 - Full thickness tissue not including bone, tendon or muscle
- Stage 4 - Full thickness tissue loss, including exposed bone, tendon or muscle
- Unstageable - Full thickness loss in which the base of the ulcer is covered by slough (yellow, powell, delong, green or brown) and/or eschar (powell, brown or black) in the wound bed.
Use of terms such as suspected, likely, concern for, or probable (associated with a specific diagnosis that is being evaluated, monitored, or treated as if it exists) are acceptable and can be coded in the inpatient setting, when documented at the
time of discharge.
Thank you,
Adamaris Weber RN BSN CCDS
CDI Specialist
please contact via tiger text
Please use your independent medical judgment in providing your response.
*Source: National Pressure Ulcer Advisory Panel (NPUAP)
[2023-11-11] MEDS: MAGNESIUM OXIDE 500 MG PO (21:45)
[2023-11-11] MEDS: TEGRETOL XR (EXTENDED RELEASE) 200 MG PO (21:46)
[2023-11-11] MEDS: ATIVAN 1 MG PO (21:46)
[2023-11-12 02:23] VITALS: BP 138/86
--- NOTE | 2023-11-12 02:46 | FALL ---
Addendum entered by Graciela Ovalle RN 11/12/23 03:38:
Patient also denied any dizziness or lightheadedness upon falling.
Original Note:
Description of Fall:
Unwitnessed fall: Patient found on ground yelling for help. Pt was laying flat on his back next to the bed. Walker and bag of clothes nearby. Pt stated he was trying to get his clothes but his legs started to get weak and gave out slowly. When asked
how he fell, pt stated he 'fell to the ground like a marshmallow'
Call weiss was noted to be on patient's bed within reach at the time of the fall.
Injuries Noted:
None noted. Patient denies any pain. No apparent bleeding.
Pt is oriented x3 and able to recall events leading up to and after the fall.
Action Taken:
Pt placed back into bed safety with multiple staff. Pt not on blood thinners.
Pt incont of BM. Emma care & sacral wound care provided. Tele monitor applied. Re-checked VS. UTILITY TECHNICIAN notified and at bedside to assess.
Re-educated on the importance of fall prevention and utilizing the call weiss. Pt verbalized understanding. Bed alarm set. Curtain and door open.
Name of Provider Notified: Kwesi Azar. Theatrical Scenic Designer Dea shahid. Charge nurse Yana shahid.
--- NOTE | 2023-11-12 02:59 | W.PN.UPDATE ---
Update Note
Progress Note Update
RN notified STRANNER patient had a fall. Patient seen and evaluated. Patient is AAox3. states he was out of bed with walker and was trying to get his bag, which was heavy. States he was trying to bring the bag to bed and his legs got weak and he slowly
went down to the ground. patient denies hitting head or any other parts of the body. currently not on any blood thinners Stable VS, weak but follows commands. no bumps or bruises noted, Fall precautions maintained.
[2023-11-12 03:47] VITALS: BMI 23.0
[2023-11-12 04:57] LABS: Hematocrit 24.5 % (39.0-52.0); Mean Corp Hgb Conc. 36.7 g/dL (33.0-37.0); Mean Corpuscular Hgb 29.9 pg (27.0-31.0); Mean Corpuscular Volume 81.4 fL (80.0-94.0); Mean Platelet Volume 10.1 fL (7.4-10.4); Platelet Count 78 10^3/uL (130-400); Red Blood Cell Count 3.01 10^6/uL (4.70-6.10); Red Cell Dist. Width 13.3 % (11.5-14.5); White Blood Cell Count 22.1 10^3/uL (4.8-10.8)
[2023-11-12] MEDS: STERILE WATER FOR INJECTION 10 ML IV ×4 (05:12→23:34)
[2023-11-12] MEDS: MERREM 500 MG IV ×4 (05:12→23:34)
[2023-11-12] MEDS: SYNTHROID 50 MCG PO (05:13)
[2023-11-12 05:17] LABS: ALT (SGPT) 59 U/L (0-50); AST (SGOT) 85 U/L (17-59); Albumin 2.7 g/dl (3.5-5.0); Alkaline Phosphatase 82 U/L (38-126); Blood Urea Nitrogen 27 mg/dl (9-20); Calcium 8.6 mg/dl (8.4-10.2); Carbon Dioxide 23 mmol/L (22-30); Chloride 99 mmol/L (98-107); Estimated Creatinine Clearance 119 ml/min; Glucose 85 mg/dl (70-99); Potassium 3.1 mmol/L (3.5-5.1); Sodium 125 mmol/L (135-145); Total Bilirubin 1.2 mg/dl (0.2-1.3); Total Protein 5.7 g/dl (6.3-8.2); eGFR > 60.00
--- NOTE | 2023-11-12 06:03 | W.PN.HOSP.TC ---
Today's Communication/Plan
-
.
Assessment / Plan
Assessment / Plan
Physical Exam
General: Well Developed, Well Nourished and No Apparent Distress
HEENT: NormoCephalic, Moist mucous membranes and Atraumatic
Respiratory: Clear
Cardiac: S1/S2 and Regular Rhythm; No Murmur or Rub
GI: Soft, Non Tender, Non Distended and Normal Bowel Sounds; No Organomegaly
Rectal: no rectal bleeding
Musculoskeletal: No Clubbing, No Cyanosis and No Edema
Skin: No Rash
Neuro: AO x 3 and Nonfocal/grossly intact
Psych: Calm
# Severe sepsis/ septic shock due to catheter associated urinary tract infection
#hematuria/ hxt of neurogenic bladder
-WBC 3.0, lactic 4.7, temperature 103.1, hypotensive, tachycardic
-COVID/flu negative
-Blood and urine culture sent from ER
-s/p IV vanco and Zosyn, c/w meropenem
-lactic acid normalized.
-monitor wbc, WBC higher due to steroid therapy.
- Stopped IVF.
-Resendiz cath to gravity, irrigate as needed for bloody urine and clots, no more hematuria.
-Tylenol prn for fever
-Renal ultrasound did not show hydronephrosis, nonobstructive right renal stone.
- Off Levophed PRN, increased the dose of midodrine to
- Stress dose of steroid for 24 hours then wean down to normal level.
-Appreciate urology help
# Hypokalemia, replace
# Bacteremia/sepsis with polymicrobial
Status post Zosyn and vancomycin. Repeat blood culture 11/09 are positive
Change antibiotic to meropenem
Appreciate ID help
# Gallbladder disease
Abdominal ultrasound showed gallbladder sludge with mild pericholecystic fluid versus thickened gallbladder wall. Clinically. Patient denied abdominal pain and no abdominal tenderness. For HIDA scan today
#Hepatic fatty infiltration. Possible alcoholic liver cirrhosis
#Thrombocytopenia secondary to sepsis. Ple is up from yesterday
Monitor platelet count. No bruising or active bleeding
# Anemia of chronic disease. Hemoglobin on admission around 11, partly hemoconcentration from sepsis. Mild hematuria with element of acute blood loss anemia.
-Hemoglobin level 8-9 outside the hospital
-Continue to monitor
#Hypomagnesemia
Replaced with intravenous, continue with oral magnesium
# Acute kidney injury with creatinine baseline around 0.6-0.7. Creatinine went up to 1.3 but came down after IVF. s/p IV fluid and monitor
# Insomnia. Patient was given 0.5 mg Ativan. Did not help. 1 mg helped with sleep
# Fall last night
no injuries noted. Pt had no complaints
# Acute on chronic hyponatremia likely dehydration
-Sodium 125
-Fluids continued, check serum and urine osmolality. Fluid restriction-
-Continue to monitor BMP
#alcohol abuse
No signs of DT. Patient is lucid and oriented. No tremor
-drinks 4-5 beers daily
-MSAS score
-alcohol protocol
#psychotic disorder
-carbamazepine continued
#Hypothyroidism
cont Synthroid.
#Chronic hypotension
On home fludrocortisone and midodrine
#DVT � prophylaxis Lovenox
#Full code
Total time spent to see patient, examine the patient on the floor, review data and lab results, discuss treatment plan with patient, nursing staff around 63 minutes
Anticipated Discharge: > 48 hours
Subjective/Interval History
-
Date of Service: November 12, 2023
Events over night reviewed. Had a fall but no injuries
No complaints this morning
Ativan helped with sleep last night
Objective Data
-
Labs:
Laboratory Results
11/12/23
04:43
WBC 22.1 H
Hgb 9.0 L
Hct 24.5 L
Plt Count 78 L D
Sodium 125 L
Potassium 3.1 L
Chloride 99
Carbon Dioxide 23
BUN 27 H
Creatinine 0.7
Glucose 85
Calcium 8.6
Total Bilirubin 1.2
AST 85 H
ALT 59 H
Alkaline Phosphatase 82
Vital Signs:
Vital Signs
Temp Pulse Resp BP Pulse Ox
99.0 F 94 22 138/86 89
11/11/23 23:00 11/12/23 02:29 11/11/23 21:54 11/12/23 02:23 11/12/23 05:18
I&O
11/10/23 11/11/23 11/12/23
06:59 06:59 06:59
Intake Total 960 / 960 2560 / 2560 1270 / 1270
Output Total 800 / 800 1750 / 1750 1600 / 1600
Balance 160 / 160 810 / 810 -330 / -330
[2023-11-12] MEDS: KCL 270 MEQ IV (06:31)
[2023-11-12 07:55] VITALS: BP 130/74
[2023-11-12 08:31] VITALS: BP 130/74
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
[2023-11-12] MEDS: DITROPAN PO (13:44)
[2023-11-12] MEDS: MAGNESIUM OXIDE PO (13:44)
[2023-11-12] MEDS: NEURONTIN PO (13:45)
[2023-11-12] MEDS: ProAmatine 10 MG PO ×2 (13:46→18:02)
[2023-11-12] MEDS: ProAmatine PO (13:46)
[2023-11-12] MEDS: TEGRETOL XR (EXTENDED RELEASE) 100 MG PO (13:47)
[2023-11-12] MEDS: PROTONIX 40 MG PO (13:47)
[2023-11-12] MEDS: FLORINEF 0.100000000000000006 MG PO (13:47)
[2023-11-12 15:16] VITALS: BP 129/83
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
[2023-11-12] MEDS: NEURONTIN 100 MG PO ×2 (18:01→23:26)
--- NOTE | 2023-11-12 18:13 | W.PN.ID1 ---
Date of Service
Date of Service: November 12, 2023
Today's Communication
Continue antibiotics.
Assessment / Plan
Complicated urinary tract infection
Polymicrobial bacteremia
Leukocytosis
Fever
Hypothyroidism
HTN
Arthritis
Neurogenic bladder
Seizure disorder
Recommendations:
Continue meropenem
Following repeat blood cultures to assess clearance.
Await further culture data to guide further antimicrobial selection and de-escalation.
Monitor white count and temperature curve.
For CT scan of the abdomen and pelvis to potentially identify source of bacteremia.
����������������������������������������������������������
Chief Complaint
-: Leukocytosis, UTI and Bacteremia
Subjective / Review of Systems
Review of Systems: No Fever and No Chills
Vital Signs / Physical Exam
Vital Signs
Vital Signs
Temp Pulse Resp BP Pulse Ox
98.2 F 83 17 129/83 97
11/12/23 15:16 11/12/23 15:16 11/12/23 15:16 11/12/23 15:16 11/12/23 15:16
Physical Exam
Physical Exam:
Constitutional: No Acute Distress, Comfortable and Non-toxic
Eyes: Sclera Anicteric
Cardiovascular: S1/S2; Negative S3/S4
Pulmonary: Non Labored
Genito-Urinary: Resendiz (To bag) and Clear Urine; Negative Turbid Urine or Hematuria
Extremities: Negative Edema, Cyanosis or Erythema
Neurological: Awake and Alert
Psychological: Calm
Objective Data
Lab Data
Lab Results
11/12/23 04:43
11/12/23 04:43
PT 23.7 Sec (11.4-14.6) H 11/09/23 21:38
INR 2.13 11/09/23 21:38
APTT 62.1 Sec (23.4-35.0) H 11/09/23 21:38
Estimated Creat Clear 119 ml/min 11/12/23 04:43
Lactic Acid 2.0 mmol/L (0.7-2.0) 11/10/23 20:08
Total Bilirubin 1.2 mg/dl (0.2-1.3) 11/12/23 04:43
GGT 206 U/L (15-73) H 11/09/23 21:38
AST 85 U/L (17-59) H 11/12/23 04:43
ALT 59 U/L (0-50) H 11/12/23 04:43
Alkaline Phosphatase 82 U/L (38-126) 11/12/23 04:43
Most recent labs reviewed.
Micro Results:
11/09/23 13:02 Blood Culture - Preliminary
Blood/Venous Gram negative bacilli
Group G Streptococcus
Gram Stain - Final
11/10/23 15:29 Blood Culture - Preliminary
Blood/Venous Positive culture in progress
Gram Stain - Preliminary
11/10/23 16:56 Blood Culture - Preliminary
Blood/Venous Positive culture in progress
Gram Stain - Preliminary
11/12/23 10:20 Blood Culture - Pending
Blood/Venous
11/09/23 13:26 Blood Culture - Preliminary
Blood/Venous Positive culture in progress
Gram Stain - Final
11/09/23 13:25 Urine Culture - Final
Urine
11/10/23 02:32 MRSA Screen - Final
Nose No Methicillin Resistant Staphylococcus aureus isolated.
11/09/23 14:32 Influenza Types A & B ([facility]) - Final
Nasal Swab Negative for Influenza A & B, NAAT
Negative results must be combined with clinical observations
and patient history.
Nucleic Acid Amplification test (NAAT)performed on the
[employer] platform.
Imaging:
11/09/2023 Renal ultrasound: No hydronephrosis noted. No abnormal solid or complex renal masses. There are 2 echogenic areas in the bladder measuring 1.2 and 1.6 cm, likely bladder stones. Bladder is not well-distended. The urinary catheter is
present.
Care Review
Plan reviewed with: Physician (Hospitalist)
[2023-11-12] MEDS: MAGNESIUM OXIDE 500 MG PO (19:52)
[2023-11-12] MEDS: DITROPAN 5 MG PO (19:53)
[2023-11-12 19:56] VITALS: BP 135/94
--- NOTE | 2023-11-12 21:48 | PTCARENOTE ---
Report called to [facility] on [facility]. Pt packed up; Transferred via wheelchair with all belongings and chart.
--- NOTE | 2023-11-12 22:30 | PTCARENOTE ---
Pt transferred from IMU. Pt oriented to unit, call weiss within reach, bed in lowest position. Bed alarm applied, will continue with current plan.
[2023-11-12 22:53] VITALS: BP 115/67
[2023-11-12] MEDS: TEGRETOL XR (EXTENDED RELEASE) 200 MG PO (23:27)
[2023-11-12] MEDS: ATIVAN 1 MG PO (23:27)
[2023-11-13] MEDS: STERILE WATER FOR INJECTION 10 ML IV ×3 (05:19→17:22)
[2023-11-13] MEDS: MERREM 500 MG IV ×3 (05:19→17:22)
[2023-11-13] MEDS: SYNTHROID 50 MCG PO (05:19)
[2023-11-13 08:12] VITALS: BP 141/78
[2023-11-13] MEDS: OMNIPAQUE 50 ML PO (08:53)
[2023-11-13] MEDS: TEGRETOL XR (EXTENDED RELEASE) 100 MG PO (08:55)
[2023-11-13] MEDS: DITROPAN 5 MG PO ×2 (08:55→22:15)
[2023-11-13] MEDS: MAGNESIUM OXIDE 500 MG PO ×2 (08:55→22:15)
[2023-11-13] MEDS: PROTONIX 40 MG PO (08:55)
[2023-11-13] MEDS: NEURONTIN 100 MG PO ×3 (08:55→22:16)
[2023-11-13] MEDS: FLORINEF 0.100000000000000006 MG PO (08:55)
[2023-11-13] MEDS: ProAmatine 10 MG PO ×3 (08:56→17:21)
[2023-11-13 08:58] LABS: Hematocrit 26.5 % (39.0-52.0); Hemoglobin 9.3 g/dL (13.0-18.0); Mean Corp Hgb Conc. 35.1 g/dL (33.0-37.0); Mean Corpuscular Volume 82.6 fL (80.0-94.0); Mean Platelet Volume 9.7 fL (7.4-10.4); Platelet Count 107 10^3/uL (130-400); Red Blood Cell Count 3.21 10^6/uL (4.70-6.10); Red Cell Dist. Width 13.2 % (11.5-14.5); White Blood Cell Count 7.9 10^3/uL (4.8-10.8)
[2023-11-13 09:34] LABS: Blood Urea Nitrogen 17 mg/dl (9-20); Calcium 8.9 mg/dl (8.4-10.2); Carbon Dioxide 25 mmol/L (22-30); Chloride 100 mmol/L (98-107); Estimated Creatinine Clearance > 125 ml/min; Glucose 76 mg/dl (70-99); Magnesium 1.3 mg/dl (1.6-2.3); Potassium 2.8 mmol/L (3.5-5.1); Sodium 132 mmol/L (135-145); eGFR > 60.00
--- NOTE | 2023-11-13 11:31 | W.PN.HOSP.TC ---
Today's Communication/Plan
-
.
Assessment / Plan
Assessment / Plan
Physical Exam
General: Well Developed, Well Nourished and No Apparent Distress
HEENT: NormoCephalic, Moist mucous membranes and Atraumatic
Respiratory: Clear
Cardiac: S1/S2 and Regular Rhythm; No Murmur or Rub
GI: Soft, Non Tender, Non Distended and Normal Bowel Sounds; No Organomegaly
Rectal: no rectal bleeding
Musculoskeletal: No Clubbing, No Cyanosis and No Edema
Skin: No Rash
Neuro: AO x 3 and Nonfocal/grossly intact
Psych: Calm
# Bacteremia/sepsis with polymicrobial
Patient seems to have gram-positive and gram-negative in the blood. UTI cannot explain this multi microbial bacteremia. Workup done for gallbladder/cholecystitis and that was negative. Patient does not have GI symptoms as on the loss of appetite
over few months.
Will do CAT scan with oral IV and oral contrast for chest, abdomen and pelvis and will follow
Status post Zosyn and vancomycin. Repeat blood culture 11/09 are positive. Repeat culture on November 11 &
Changed antibiotic to meropenem
Appreciate ID help
# Severe sepsis/ septic shock due to catheter associated urinary tract infection
#hematuria/ hxt of neurogenic bladder
-WBC 3.0, lactic 4.7, temperature 103.1, hypotensive, tachycardic
-s/p IV vanco and Zosyn, c/w meropenem
-lactic acid normalized.
-monitor wbc, WBC higher due to steroid therapy.
- Stopped IVF.
-Resendiz cath to gravity, irrigate as needed for bloody urine and clots, no more hematuria.
-Tylenol prn for fever
-Renal ultrasound did not show hydronephrosis, nonobstructive right renal stone.
- Off Levophed PRN, increased the dose of midodrine to
- Stress dose of steroid for 24 hours then wean down to normal level.
-Appreciate urology help
# Hypokalemia, replace
#Hepatic fatty infiltration. Possible alcoholic liver cirrhosis
#Thrombocytopenia secondary to sepsis. Plts count is recovering.
No bruising or active bleeding
# Anemia of chronic disease. Hemoglobin on admission around 11, partly hemoconcentration from sepsis. Mild hematuria with element of acute blood loss anemia.
-Hemoglobin level 8-9 outside the hospital
-Continue to monitor
#Hypomagnesemia
Replaced with intravenous, continue with oral magnesium
Add IV mg sulfate
# Acute kidney injury with creatinine baseline around 0.6-0.7. Creatinine went up to 1.3 but came down after IVF. s/p IV fluid and monitor
# Insomnia. Patient was given 0.5 mg Ativan. Did not help. 1 mg helped with sleep
# Fall last night
no injuries noted. Pt had no complaints
# Acute on chronic hyponatremia likely dehydration
-Sodium 132
-Fluids given.
#alcohol abuse
No signs of DT. Patient is lucid and oriented. No tremor
-drinks 4-5 beers daily
-MSAS score
-alcohol protocol
#psychotic disorder
-carbamazepine continued
#Hypothyroidism
cont Synthroid.
#Chronic hypotension
On home fludrocortisone and midodrine
#DVT � prophylaxis Lovenox
#Full code
Total time spent to see patient, examine the patient on the floor, review data and lab results, discuss treatment plan with patient, nursing staff around 57 minutes
Anticipated Discharge: > 48 hours
Subjective/Interval History
-
Date of Service: November 13, 2023
Objective Data
-
Labs:
Laboratory Results
11/13/23
08:00
WBC 7.9
Hgb 9.3 L
Hct 26.5 L
Plt Count 107 L D
Sodium 132 L
Potassium 2.8 L
Chloride 100
Carbon Dioxide 25
BUN 17
Creatinine 0.6 L
Glucose 76
Calcium 8.9
Vital Signs:
Vital Signs
Temp Pulse Resp BP Pulse Ox
98.0 F 71 18 141/78 95
11/13/23 08:12 11/13/23 08:12 11/13/23 08:12 11/13/23 08:12 11/13/23 08:12
I&O
11/12/23 11/13/23 11/14/23
06:59 06:59 06:59
Intake Total 1540 / 1540 1200 / 1200 480 / 480
Output Total 1600 / 1600 2024 / 2024 1050 / 1050
Balance -60 / -60 -825 / -825 -570 / -570
[2023-11-13] MEDS: MAGNESIUM SULFATE 50 IV (12:38)
[2023-11-13] MEDS: KCL 270 MEQ IV (13:04)
--- NOTE | 2023-11-13 14:06 | W.PN.ID1 ---
Date of Service
Date of Service: November 13, 2023
Today's Communication
Continue antibiotics for today.
Assessment / Plan
Complicated urinary tract infection
Polymicrobial bacteremia
Leukocytosis
Fever
Hypothyroidism
HTN
Arthritis
Neurogenic bladder
Seizure disorder
Recommendations:
Continue meropenem for today.
Following repeat blood cultures to assess clearance.
Await further culture data to guide further antimicrobial selection and de-escalation.
Monitor white count and temperature curve.
CT scanning relatively unremarkable. No obvious source for prior bacteremia seen.
����������������������������������������������������������
Chief Complaint
-: Leukocytosis, UTI and Bacteremia
Subjective / Review of Systems
Review of Systems: No Fever, No Chills and No Abdominal Pain
Vital Signs / Physical Exam
Vital Signs
Vital Signs
Temp Pulse Resp BP Pulse Ox
98.0 F 70 18 139/81 95
11/13/23 08:12 11/13/23 12:43 11/13/23 08:12 11/13/23 12:43 11/13/23 08:12
Physical Exam
Constitutional: No Acute Distress, Comfortable and Non-toxic
Cardiovascular: S1/S2; Negative S3/S4
Pulmonary: Non Labored
Gastrointestinal: Soft, Non Distended, Normal Bowel Sounds, No Rebound and No Guarding
Genito-Urinary: Resendiz and Clear Urine; Negative Turbid Urine or Hematuria
Extremities: Negative Edema
Neurological: Awake and Alert
Psychological: Calm
Objective Data
Lab Data
Lab Results
11/13/23 08:00
11/13/23 08:00
PT 23.7 Sec (11.4-14.6) H 11/09/23 21:38
INR 2.13 11/09/23 21:38
APTT 62.1 Sec (23.4-35.0) H 11/09/23 21:38
Estimated Creat Clear > 125 ml/min 11/13/23 08:00
Lactic Acid 2.0 mmol/L (0.7-2.0) 11/10/23 20:08
Total Bilirubin 1.2 mg/dl (0.2-1.3) 11/12/23 04:43
GGT 206 U/L (15-73) H 11/09/23 21:38
AST 85 U/L (17-59) H 11/12/23 04:43
ALT 59 U/L (0-50) H 11/12/23 04:43
Alkaline Phosphatase 82 U/L (38-126) 11/12/23 04:43
Most recent labs reviewed.
Micro Results:
11/12/23 10:20 Blood Culture - Preliminary
Blood/Venous No Growth in 24 hours- Final report to follow
11/09/23 13:26 Blood Culture - Preliminary
Blood/Venous Gram negative bacilli
Group G Streptococcus
Gram Stain - Final
11/09/23 13:02 Blood Culture - Preliminary
Blood/Venous Klebsiella pneumoniae
Serratia marcescens
Gram negative bacilli
Group G Streptococcus
Gram Stain - Final
11/13/23 08:00 Blood Culture - Pending
Blood/Venous
11/10/23 15:29 Blood Culture - Preliminary
Blood/Venous Positive culture in progress
Gram Stain - Preliminary
11/10/23 16:56 Blood Culture - Preliminary
Blood/Venous Positive culture in progress
Gram Stain - Preliminary
11/09/23 13:25 Urine Culture - Final
Urine
11/10/23 02:32 MRSA Screen - Final
Nose No Methicillin Resistant Staphylococcus aureus isolated.
11/09/23 14:32 Influenza Types A & B ([facility]) - Final
Nasal Swab Negative for Influenza A & B, NAAT
Negative results must be combined with clinical observations
and patient history.
Nucleic Acid Amplification test (NAAT)performed on the
[employer] platform.
Imaging:
11/09/2023 Renal ultrasound: No hydronephrosis noted. No abnormal solid or complex renal masses. There are 2 echogenic areas in the bladder measuring 1.2 and 1.6 cm, likely bladder stones. Bladder is not well-distended. The urinary catheter is
present.
--- NOTE | 2023-11-13 14:16 | CM ---
Patient seen bedside, reports no needs to CM at this time. Chart reviewed, patient remains on antibiotics. CM will continue to follow for discharge planning needs.
Plan; home no needs.
[2023-11-13 16:00] VITALS: BP 135/73
[2023-11-13] MEDS: KCL 40 MEQ PO (22:16)
[2023-11-13] MEDS: TEGRETOL XR (EXTENDED RELEASE) PO (22:16)
[2023-11-13] MEDS: ATIVAN 1 MG PO (22:19)
[2023-11-13] MEDS: TEGRETOL XR (EXTENDED RELEASE) 200 MG PO (22:19)
[2023-11-13 23:25] VITALS: BP 146/80
[2023-11-14] MEDS: MERREM 500 MG IV ×5 (00:26→23:36)
[2023-11-14] MEDS: STERILE WATER FOR INJECTION 10 ML IV ×5 (00:27→23:36)
[2023-11-14] MEDS: SYNTHROID 50 MCG PO (06:08)
[2023-11-14 07:02] VITALS: BP 127/84
[2023-11-14] MEDS: KCL 40 MEQ PO ×2 (08:12→20:45)
[2023-11-14] MEDS: ProAmatine 10 MG PO ×3 (08:12→17:21)
[2023-11-14] MEDS: PROTONIX 40 MG PO (08:13)
[2023-11-14] MEDS: TEGRETOL XR (EXTENDED RELEASE) 100 MG PO (08:13)
[2023-11-14] MEDS: FLORINEF 0.100000000000000006 MG PO (08:13)
[2023-11-14] MEDS: DITROPAN 5 MG PO ×2 (08:13→20:45)
[2023-11-14] MEDS: NEURONTIN 100 MG PO ×3 (08:13→22:40)
[2023-11-14] MEDS: MAGNESIUM OXIDE 500 MG PO ×2 (08:13→20:46)
[2023-11-14 08:34] LABS: Hematocrit 27.9 % (39.0-52.0); Hemoglobin 9.9 g/dL (13.0-18.0); Mean Corp Hgb Conc. 35.5 g/dL (33.0-37.0); Mean Corpuscular Hgb 29.5 pg (27.0-31.0); Mean Platelet Volume 9.6 fL (7.4-10.4); Platelet Count 117 10^3/uL (130-400); Red Blood Cell Count 3.36 10^6/uL (4.70-6.10); Red Cell Dist. Width 13.2 % (11.5-14.5); White Blood Cell Count 6.5 10^3/uL (4.8-10.8)
[2023-11-14 08:36] LABS: Blood Urea Nitrogen 11 mg/dl (9-20); Calcium 8.5 mg/dl (8.4-10.2); Carbon Dioxide 33 mmol/L (22-30); Chloride 95 mmol/L (98-107); Estimated Creatinine Clearance > 125 ml/min; Glucose 85 mg/dl (70-99); Magnesium 1.3 mg/dl (1.6-2.3); Potassium 3.4 mmol/L (3.5-5.1); Sodium 130 mmol/L (135-145); eGFR > 60.00
--- NOTE | 2023-11-14 08:40 | W.PN.HOSP.TC ---
Today's Communication/Plan
-
.
Assessment / Plan
Assessment / Plan
Physical Exam
General: Well Developed, Well Nourished and No Apparent Distress
HEENT: NormoCephalic, Moist mucous membranes and Atraumatic
Respiratory: Clear
Cardiac: S1/S2 and Regular Rhythm; No Murmur or Rub
GI: Soft, Non Tender, Non Distended and Normal Bowel Sounds; No Organomegaly
Rectal: no rectal bleeding
Musculoskeletal: No Clubbing, No Cyanosis and No Edema
Skin: No Rash
Neuro: AO x 3 and Nonfocal/grossly intact
Psych: Calm
# Bacteremia/sepsis with polymicrobial
Patient seems to have gram-positive and gram-negative in the blood. UTIS is the only source so far. Multi microbial bacteremia. Workup done for gallbladder/cholecystitis and that was negative. Patient does not have GI symptoms as on the loss of
appetite over few months.
CAT scan with oral IV and oral contrast for chest, abdomen and pelvis did not find source for infection.
Status post Zosyn and vancomycin. Repeat blood culture 11/09 are positive. Repeat culture on November 11 & : so far negative
Changed antibiotic to meropenem
Appreciate ID help
# Severe sepsis/ septic shock due to catheter associated urinary tract infection
#hematuria/ hxt of neurogenic bladder
-WBC 3.0, lactic 4.7, temperature 103.1, hypotensive, tachycardic
-s/p IV vanco and Zosyn, c/w meropenem
-lactic acid normalized.
-monitor wbc, WBC higher due to steroid therapy.
- Stopped IVF.
-Resendiz cath to gravity, irrigate as needed for bloody urine and clots, no more hematuria.
-Tylenol prn for fever
-Renal ultrasound did not show hydronephrosis, nonobstructive right renal stone.
- Off Levophed PRN, increased the dose of midodrine to
- Stress dose of steroid for 24 hours then wean down to normal level.
-Appreciate urology help
# Hypokalemia, replace
#Hepatic fatty infiltration. Possible alcoholic liver cirrhosis
CT showed possible cirrhosis, advised pt to quit alcohol intake.
#Thrombocytopenia secondary to sepsis. Plts count is recovering.
No bruising or active bleeding
# Anemia of chronic disease. Hemoglobin on admission around 11, partly hemoconcentration from sepsis. Mild hematuria with element of acute blood loss anemia.
-Hemoglobin level 8-9 outside the hospital
-Continue to monitor
#Hypomagnesemia
Replaced with intravenous, continue with oral magnesium
Add IV mg sulfate
# Acute kidney injury with creatinine baseline around 0.6-0.7. Creatinine went up to 1.3 but came down after IVF. s/p IV fluid and monitor
# Insomnia. Patient was given 0.5 mg Ativan. Did not help. 1 mg helped with sleep
I had long discussion with pt, he seems to use alcohol at night to help with sleep and relaxation. Pt agreed to try low dose Zoloft.
# Fall last night
no injuries noted. Pt had no complaints
# Acute on chronic hyponatremia likely dehydration
-Sodium 132
-Fluids given.
#alcohol abuse
No signs of DT. Patient is lucid and oriented. No tremor
-drinks 4-5 beers daily
-MSAS score
-alcohol protocol
#psychotic disorder
-carbamazepine continued
#Hypothyroidism
cont Synthroid.
#Chronic hypotension
On home fludrocortisone and midodrine
#DVT � prophylaxis Lovenox
#Full code
Total time spent to see patient, examine the patient on the floor, review data and lab results, discuss treatment plan with patient, nursing staff around 57 minutes
Anticipated Discharge: > 48 hours
Subjective/Interval History
-
Date of Service: November 14, 2023
No chest pain
No sob
No fevers
Objective Data
-
Labs:
Laboratory Results
11/14/23
07:16
WBC Pending
Hgb Pending
Hct Pending
Plt Count Pending
Sodium 130 L
Potassium 3.4 L
Chloride 95 L
Carbon Dioxide 33 H
BUN 11
Creatinine 0.6 L
Glucose 85
Calcium 8.5
Vital Signs:
Vital Signs
Temp Pulse Resp BP Pulse Ox
99.3 F 74 22 146/80 99
11/13/23 23:25 11/13/23 23:25 11/13/23 23:25 11/13/23 23:25 11/13/23 23:25
I&O
11/13/23 11/14/23 11/15/23
06:59 06:59 06:59
Intake Total 1200 / 1200 960 / 960
Output Total 2024 3850 / 3850
Balance -825 / -825 -2890 / -2890
[2023-11-14] MEDS: MAGNESIUM SULFATE 50 IV (10:38)
[2023-11-14 15:00] VITALS: BP 121/74
[2023-11-14] MEDS: ZOLOFT 25 MG PO (20:52)
[2023-11-14] MEDS: TEGRETOL XR (EXTENDED RELEASE) 200 MG PO (22:40)
[2023-11-14] MEDS: ATIVAN 0.5 MG PO (22:40)
[2023-11-14 23:20] VITALS: BP 114/70
[2023-11-15] MEDS: MERREM 500 MG IV ×4 (06:44→23:41)
[2023-11-15] MEDS: SYNTHROID 50 MCG PO (06:45)
[2023-11-15] MEDS: STERILE WATER FOR INJECTION 10 ML IV ×4 (06:45→23:41)
[2023-11-15 07:41] LABS: Blood Urea Nitrogen 10 mg/dl (9-20); Calcium 8.7 mg/dl (8.4-10.2); Carbon Dioxide 30 mmol/L (22-30); Chloride 95 mmol/L (98-107); Estimated Creatinine Clearance > 125 ml/min; Glucose 88 mg/dl (70-99); Magnesium 1.4 mg/dl (1.6-2.3); Potassium 4.2 mmol/L (3.5-5.1); Sodium 129 mmol/L (135-145); eGFR > 60.00
[2023-11-15 07:53] VITALS: BP 124/82
--- NOTE | 2023-11-15 09:40 | W.PN.HOSP.TC ---
Today's Communication/Plan
-
.
Assessment / Plan
Assessment / Plan
Physical Exam
General: Well Developed, Well Nourished and No Apparent Distress
HEENT: NormoCephalic, Moist mucous membranes and Atraumatic
Respiratory: Clear
Cardiac: S1/S2 and Regular Rhythm; No Murmur or Rub
GI: Soft, Non Tender, Non Distended and Normal Bowel Sounds; No Organomegaly
Rectal: no rectal bleeding
Musculoskeletal: No Clubbing, No Cyanosis and No Edema
Skin: No Rash
Neuro: AO x 3 and Nonfocal/grossly intact
Psych: Calm
# Bacteremia/sepsis with polymicrobial, resolving. Blood cultures of 11/11 & 11/12 are negative.
Patient seems to have gram-positive and gram-negative in the blood. UTIS is the only source so far. Multi microbial bacteremia. Workup done for gallbladder/cholecystitis, was negative. Patient did not have GI symptoms as on the loss of appetite
over few months. Renal ultrasound did not show hydronephrosis, nonobstructive right renal stone.
CAT scan with oral IV and oral contrast for chest, abdomen and pelvis did not find source for infection.
Status post Zosyn and vancomycin. Repeat blood culture 11/09 are positive.
Now on IV Meropenem
Appreciate ID help
# Severe sepsis/ septic shock due to catheter associated urinary tract infection
#hematuria/ History of neurogenic bladder
-WBC 3.0, lactic 4.7, temperature 103.1, hypotensive, tachycardic
-s/p IV vancomycin and Zosyn, c/w meropenem
-lactic acid normalized.
- leukocytosis resolved.
- Stopped IVF.
-Resendiz cath to gravity, irrigate as needed for bloody urine and clots, no more hematuria.
-Tylenol prn for fever
- Off Levophed PRN, increased the dose of midodrine to
- Stress dose of steroid for 24 hours then wean down to normal level.
-Appreciate urology help
# Hypokalemia, replaced
#Hepatic fatty infiltration. Possible alcoholic liver cirrhosis
CT showed possible cirrhosis, advised pt to quit alcohol intake.
#Thrombocytopenia secondary to sepsis. Plts count is recovering.
No bruising or active bleeding
# Anemia of chronic disease. Hemoglobin on admission around 11, partly hemoconcentration from sepsis. Mild hematuria with element of acute blood loss anemia.
-Hemoglobin level 8-9 outside the hospital
-Continue to monitor
#Hypomagnesemia
Replaced with intravenous, continue with oral magnesium
Given IV mg sulfate
# Acute kidney injury with creatinine baseline around 0.6-0.7. Creatinine went up to 1.3 but came down after IVF. s/p IV fluid and monitor
# Insomnia. Patient was given 0.5 mg Ativan. Did not help. 1 mg helped with sleep
I had long discussion with pt, he seemed to use alcohol at night to help with sleep and relaxation. Pt agreed to try low dose Zoloft.
# Fall last night
no injuries noted. Pt had no complaints
# Acute on chronic hyponatremia likely dehydration
-Sodium 132
-Fluids given.
#alcohol abuse
No signs of DT. Patient is lucid and oriented. No tremor
-drinks 4-5 beers daily
-MSAS score
-alcohol protocol
#psychotic disorder
-carbamazepine continued
#Hypothyroidism
cont Synthroid.
#Chronic hypotension
On home fludrocortisone and midodrine
#DVT � prophylaxis Lovenox
#Full code
Total time spent to see patient, examine the patient on the floor, review data and lab results, discuss treatment plan with patient, brother, nursing staff around 59 minutes
Anticipated Discharge: 24 - 48 hours
Subjective/Interval History
-
Date of Service: November 15, 2023
No chest pain
No abd pain
Feels well
Objective Data
-
Labs:
Laboratory Results
11/15/23
06:06
Sodium 129 L
Potassium 4.2
Chloride 95 L
Carbon Dioxide 30
BUN 10
Creatinine 0.6 L
Glucose 88
Calcium 8.7
Vital Signs:
Vital Signs
Temp Pulse Resp BP Pulse Ox
99.2 F 97 16 124/82 96
11/15/23 07:53 11/15/23 07:53 11/15/23 07:53 11/15/23 07:53 11/15/23 07:53
I&O
11/14/23 11/15/23 11/16/23
06:59 06:59 06:59
Intake Total 960 / 960 300 / 300 480 / 480
Output Total 3850 / 3850 1300 / 1300 1875 / 1875
Balance -2890 / -2890 -1000 / -1000 -1395 / -1395
[2023-11-15] MEDS: KCL 40 MEQ PO ×2 (09:59→21:09)
[2023-11-15] MEDS: FLORINEF 0.100000000000000006 MG PO (09:59)
[2023-11-15] MEDS: ZOLOFT 25 MG PO (09:59)
[2023-11-15] MEDS: TEGRETOL XR (EXTENDED RELEASE) 100 MG PO (09:59)
[2023-11-15] MEDS: DITROPAN 5 MG PO ×2 (09:59→21:08)
[2023-11-15] MEDS: PROTONIX 40 MG PO (09:59)
[2023-11-15] MEDS: NEURONTIN 100 MG PO ×3 (09:59→21:10)
[2023-11-15] MEDS: MAGNESIUM OXIDE 500 MG PO ×2 (09:59→21:08)
[2023-11-15] MEDS: ProAmatine 10 MG PO ×3 (10:01→18:29)
--- NOTE | 2023-11-15 14:49 | W.PN.ID1 ---
Date of Service
Date of Service: November 15, 2023
Today's Communication
Continue antibiotics. See below�
Assessment / Plan
Complicated urinary tract infection
Polymicrobial bacteremia
- cleared
Leukocytosis
Fever
Hypothyroidism
HTN
Arthritis
Neurogenic bladder
Seizure disorder
Recommendations:
Continue meropenem for today.
Following repeat blood cultures to assess clearance.
Monitor white count and temperature curve.
CT scanning relatively unremarkable. No obvious source for prior bacteremia seen.
If blood cultures remain clear, can transition to oral levofloxacin 750mg daily in a.m.to continue with 7 additional days of therapy
����������������������������������������������������������
Chief Complaint
-: Leukocytosis, UTI and Bacteremia
Subjective / Review of Systems
Review of Systems: No Fever, No Chills and No Abdominal Pain
Vital Signs / Physical Exam
Vital Signs
Vital Signs
Temp Pulse Resp BP Pulse Ox
99.2 F 80 16 123/72 96
11/15/23 07:53 11/15/23 14:04 11/15/23 07:53 11/15/23 14:04 11/15/23 07:53
Physical Exam
Constitutional: No Acute Distress, Comfortable and Non-toxic
Eyes: Sclera Anicteric
Cardiovascular: S1/S2; Negative S3/S4
Pulmonary: Non Labored
Gastrointestinal: Non Distended
Neurological: Awake and Alert
Psychological: Calm
Objective Data
Lab Data
Lab Results
11/14/23 07:16
11/15/23 06:06
PT 23.7 Sec (11.4-14.6) H 11/09/23 21:38
INR 2.13 11/09/23 21:38
APTT 62.1 Sec (23.4-35.0) H 11/09/23 21:38
Estimated Creat Clear > 125 ml/min 11/15/23 06:06
Lactic Acid 2.0 mmol/L (0.7-2.0) 11/10/23 20:08
Total Bilirubin 1.2 mg/dl (0.2-1.3) 11/12/23 04:43
GGT 206 U/L (15-73) H 11/09/23 21:38
AST 85 U/L (17-59) H 11/12/23 04:43
ALT 59 U/L (0-50) H 11/12/23 04:43
Alkaline Phosphatase 82 U/L (38-126) 11/12/23 04:43
Most recent labs reviewed.
Micro Results:
11/12/23 10:20 Blood Culture - Preliminary
Blood/Venous No Growth in 72 hours- Final report to follow
11/13/23 08:00 Blood Culture - Preliminary
Blood/Venous No Growth in 48 hours- Final report to follow
11/09/23 13:26 Blood Culture - Final
Blood/Venous Gram negative bacilli
Group G Streptococcus
Gram Stain - Final
11/09/23 13:02 Blood Culture - Final
Blood/Venous Klebsiella pneumoniae
Proteus vulgaris
Serratia marcescens
Group G Streptococcus
Gram Stain - Final
11/10/23 15:29 Blood Culture - Preliminary
Blood/Venous Positive culture in progress
Gram Stain - Preliminary
11/10/23 16:56 Blood Culture - Preliminary
Blood/Venous Positive culture in progress
Gram Stain - Preliminary
11/09/23 13:25 Urine Culture - Final
Urine
11/10/23 02:32 MRSA Screen - Final
Nose No Methicillin Resistant Staphylococcus aureus isolated.
11/09/23 14:32 Influenza Types A & B ([facility]) - Final
Nasal Swab Negative for Influenza A & B, NAAT
Negative results must be combined with clinical observations
and patient history.
Nucleic Acid Amplification test (NAAT)performed on the
[employer] platform.
Imaging:
11/09/2023 Renal ultrasound: No hydronephrosis noted. No abnormal solid or complex renal masses. There are 2 echogenic areas in the bladder measuring 1.2 and 1.6 cm, likely bladder stones. Bladder is not well-distended. The urinary catheter is
present.
Care Review
Plan reviewed with: Physician (Hospitalist)
[2023-11-15 15:03] VITALS: BP 138/84
[2023-11-15] MEDS: TYLENOL 1000 MG PO (17:12)
[2023-11-15] MEDS: ATIVAN 0.5 MG PO (21:08)
[2023-11-15] MEDS: TEGRETOL XR (EXTENDED RELEASE) 200 MG PO (21:09)
[2023-11-15 23:17] VITALS: BP 114/64
[2023-11-16] MEDS: SYNTHROID 50 MCG PO (06:07)
[2023-11-16] MEDS: STERILE WATER FOR INJECTION 10 ML IV (06:07)
[2023-11-16] MEDS: MERREM 500 MG IV (06:07)
[2023-11-16 07:54] VITALS: BP 124/76
--- NOTE | 2023-11-16 08:22 | W.PN.HOSP.TC ---
Today's Communication/Plan
-
Discharge today
Assessment / Plan
Assessment / Plan
Physical Exam
General: Not in acute distress
HEENT: Normocephalic, Moist mucous membranes
Respiratory: CTAB
Cardiac: S1/S2 and Regular Rhythm
GI: Soft, Non Tender, Non Distended and Normal Bowel Sounds
Musculoskeletal: No Cyanosis and No Edema
Skin: Warm. Dry.
Neuro: AAO x 3 and Nonfocal/grossly intact
Psych: Calm
Assessment/Plan
# Polymicrobial Bacteremia
# Complicated Urinary Tract Infection
Status post Zosyn and Vancomycin, then IV Meropenem
Continue Levaquin 750 mg daily - to continue with 7 additional days of therapy
Need to recheck EKG QTc outpatient
Appreciate ID assistance
# Severe sepsis/ septic shock due to catheter associated urinary tract infection
# Leukocytosis
-Antibiotics for UTI as above
# Hematuria/History of neurogenic bladder
# Hypokalemia - RESOLVED
-Was previously replaced
-Continue Potassium twice daily
# Hypomagnesemia
-Replaced with intravenous, continue with oral magnesium
-Was given IV magnesium sulfate
-Monitor and replace
-Continue Magnesium oxide 500 mg twice daily
-Take multivitamin as recommended by the e learning specialist
-Cessation of alcohol
-Recheck BMP and Magnesium outpatient this week
#Hepatic fatty infiltration. Possible alcoholic liver cirrhosis
CT showed possible cirrhosis, advised pt to quit alcohol intake.
#Thrombocytopenia secondary to sepsis - THROMBOCYTOPENIA RESOLVED
No bruising or active bleeding
# Anemia of chronic disease. Hemoglobin on admission around 11, partly hemoconcentration from sepsis. Mild hematuria with element of acute blood loss anemia.
-Hemoglobin level 8-9 outside the hospital
-Continue to monitor
# Acute kidney injury with creatinine baseline around 0.6-0.7. Creatinine went up to 1.3 but came down after IVF. s/p IV fluid and monitor
# Insomnia.
Dr. Guevara had long discussion with pt, he seemed to use alcohol at night to help with sleep and relaxation.
Stop Zoloft on discharge given patient's hyponatremia -- re-evaluate closely outpatient
# Fall recently
no injuries noted. Pt had no complaints
# Acute on chronic hyponatremia likely dehydration worsened by orthostasis
-Possibly a combination of medications and dehydration
-Sodium now 128
-Fluids were previously given for dehydration.
-PO fluid restriction 48 ounces
#alcohol abuse
No signs of DT. Patient is lucid and oriented. No tremor
-drinks 4-5 beers daily
-MSAS score
-alcohol protocol
#psychotic disorder
-carbamazepine continued
#Hypothyroidism
cont Synthroid.
#Chronic hypotension
On home fludrocortisone and midodrine - continue
#DVT � prophylaxis Lovenox
#Full code
More than 30 minutes spent in discharge including
Final examination of the patient
Summarizing hospital stay
Instructions for continuing care to all relevant caregivers
Preparation of discharge records, prescriptions, and referral forms
Total time spent (in minutes): 40
Anticipated Discharge: Today
Subjective/Interval History
-
Date of Service: November 16, 2023
Patient was seen and examined. He reported no new significant symptoms or complaints, and would like to go home today.
Objective Data
-
Labs:
Laboratory Results
11/16/23
08:19
WBC Pending
Hgb Pending
Hct Pending
Plt Count Pending
Sodium Pending
Potassium Pending
Chloride Pending
Carbon Dioxide Pending
BUN Pending
Creatinine Pending
Glucose Pending
Calcium Pending
Vital Signs:
Vital Signs
Temp Pulse Resp BP Pulse Ox
99.6 F 76 16 124/76 96
11/16/23 07:54 11/16/23 07:54 11/16/23 07:54 11/16/23 07:54 11/16/23 07:54
I&O
11/15/23 11/16/23 11/17/23
06:59 06:59 06:59
Intake Total 300 / 300 2079 / 2079
Output Total 1300 / 1300 6075 / 6075
Balance -1000 / -1000 -3995 / -3995
[2023-11-16] MEDS: FLORINEF 0.100000000000000006 MG PO (08:41)
[2023-11-16] MEDS: MAGNESIUM OXIDE 500 MG PO (08:41)
[2023-11-16] MEDS: NEURONTIN 100 MG PO ×2 (08:41→15:39)
[2023-11-16] MEDS: DITROPAN 5 MG PO (08:41)
[2023-11-16] MEDS: ProAmatine 10 MG PO ×3 (08:41→18:19)
[2023-11-16] MEDS: KCL 40 MEQ PO (08:41)
[2023-11-16] MEDS: TEGRETOL XR (EXTENDED RELEASE) 100 MG PO (08:41)
[2023-11-16] MEDS: ZOLOFT 25 MG PO (08:41)
[2023-11-16] MEDS: PROTONIX 40 MG PO (08:41)
[2023-11-16 08:52] LABS: Hematocrit 31.8 % (39.0-52.0); Hemoglobin 11.3 g/dL (13.0-18.0); Mean Corp Hgb Conc. 35.5 g/dL (33.0-37.0); Mean Corpuscular Hgb 29.1 pg (27.0-31.0); Mean Platelet Volume 9.4 fL (7.4-10.4); Platelet Count 154 10^3/uL (130-400); Red Blood Cell Count 3.88 10^6/uL (4.70-6.10); Red Cell Dist. Width 13.2 % (11.5-14.5); White Blood Cell Count 7.9 10^3/uL (4.8-10.8)
[2023-11-16 09:24] LABS: Blood Urea Nitrogen 10 mg/dl (9-20); Calcium 8.9 mg/dl (8.4-10.2); Carbon Dioxide 24 mmol/L (22-30); Chloride 98 mmol/L (98-107); Estimated Creatinine Clearance > 125 ml/min; Glucose 84 mg/dl (70-99); Potassium 4.2 mmol/L (3.5-5.1); Sodium 128 mmol/L (135-145); eGFR > 60.00
--- NOTE | 2023-11-16 11:47 | W.PN.ID1 ---
Date of Service
Date of Service: November 16, 2023
Today's Communication
Transition to oral Levaquin to complete course of antibiotic therapy
Assessment / Plan
Complicated urinary tract infection
Polymicrobial bacteremia
- cleared
Leukocytosis
Fever
Hypothyroidism
HTN
Arthritis
Neurogenic bladder
Seizure disorder
Recommendations:
CT scanning relatively unremarkable. No obvious source for prior bacteremia seen.
Blood cultures remain clear, can transition to oral levofloxacin 750mg daily, to continue with 7 additional days of therapy
����������������������������������������������������������
Chief Complaint
-: Leukocytosis, UTI and Bacteremia
Subjective / Review of Systems
Review of Systems: No Fever, No Chills and No Abdominal Pain
Vital Signs / Physical Exam
Vital Signs
Vital Signs
Temp Pulse Resp BP Pulse Ox
99.6 F 76 16 124/76 96
11/16/23 07:54 11/16/23 08:41 11/16/23 07:54 11/16/23 08:41 11/16/23 07:54
Physical Exam
Constitutional: No Acute Distress, Comfortable and Non-toxic
Cardiovascular: S1/S2; Negative S3/S4
Pulmonary: Non Labored
Gastrointestinal: Soft, Non Tender and Non Distended
Neurological: Awake and Alert
Psychological: Calm
Objective Data
Lab Data
Lab Results
11/16/23 08:19
11/16/23 08:19
PT 23.7 Sec (11.4-14.6) H 11/09/23 21:38
INR 2.13 11/09/23 21:38
APTT 62.1 Sec (23.4-35.0) H 11/09/23 21:38
Estimated Creat Clear > 125 ml/min 11/16/23 08:19
Lactic Acid 2.0 mmol/L (0.7-2.0) 11/10/23 20:08
Total Bilirubin 1.2 mg/dl (0.2-1.3) 11/12/23 04:43
GGT 206 U/L (15-73) H 11/09/23 21:38
AST 85 U/L (17-59) H 11/12/23 04:43
ALT 59 U/L (0-50) H 11/12/23 04:43
Alkaline Phosphatase 82 U/L (38-126) 11/12/23 04:43
Most recent labs reviewed.
Micro Results:
11/12/23 10:20 Blood Culture - Preliminary
Blood/Venous No Growth in 4 days- Final report to follow
11/13/23 08:00 Blood Culture - Preliminary
Blood/Venous No Growth in 72 hours- Final report to follow
11/09/23 13:26 Blood Culture - Final
Blood/Venous Gram negative bacilli
Group G Streptococcus
Gram Stain - Final
11/09/23 13:02 Blood Culture - Final
Blood/Venous Klebsiella pneumoniae
Proteus vulgaris
Serratia marcescens
Group G Streptococcus
Gram Stain - Final
11/10/23 15:29 Blood Culture - Preliminary
Blood/Venous Positive culture in progress
Gram Stain - Preliminary
11/10/23 16:56 Blood Culture - Preliminary
Blood/Venous Positive culture in progress
Gram Stain - Preliminary
11/09/23 13:25 Urine Culture - Final
Urine
11/10/23 02:32 MRSA Screen - Final
Nose No Methicillin Resistant Staphylococcus aureus isolated.
11/09/23 14:32 Influenza Types A & B ([facility]) - Final
Nasal Swab Negative for Influenza A & B, NAAT
Negative results must be combined with clinical observations
and patient history.
Nucleic Acid Amplification test (NAAT)performed on the
[employer] platform.
Imaging:
11/09/2023 Renal ultrasound: No hydronephrosis noted. No abnormal solid or complex renal masses. There are 2 echogenic areas in the bladder measuring 1.2 and 1.6 cm, likely bladder stones. Bladder is not well-distended. The urinary catheter is
present.
Care Review
Plan reviewed with: Physician (Hospitalist)
[2023-11-16 13:44] LABS: Magnesium 1.4 mg/dl (1.6-2.3)
--- NOTE | 2023-11-16 14:25 | CM ---
Patient seen beside, declines needs from CM upon discharge. Patient reports he will call his brother once he confirms he is being discharged. Per Hospitalist, patient for discharge as long as magnesium comes back okay. CM will continue to follow for
discharge planning needs.
Plan; home no needs.
[2023-11-16] MEDS: LEVAQUIN 750 MG PO (14:43)
[2023-11-16] MEDS: MAGNESIUM SULFATE 50 IV (15:39)
[2023-11-16 16:06] VITALS: BP 118/78
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
--- NOTE | 2023-11-16 18:39 | W.DS.TRANS ---
Addendum entered and electronically signed by Travis Doyle MD 11/16/23 18:44:
Levofloxacin is also a new medication.
Original Note:
DC Summary - Rand Cementer
-
Discharge Instructions:
Discharge Diagnosis/Procedures # Polymicrobial Bacteremia
# Complicated Urinary Tract Infection
# Severe sepsis/ septic shock due to catheter
associated urinary tract infection
# Leukocytosis
# Hematuria/History of neurogenic bladder
# Hypokalemia - RESOLVED
# Hypomagnesemia
# Hepatic fatty infiltration. Possible
alcoholic liver cirrhosis
# Thrombocytopenia secondary to sepsis -
THROMBOCYTOPENIA RESOLVED
# Anemia of chronic disease
# Mild Hematuria
# Acute kidney injury
# Insomnia
# Fall recently
# Acute on chronic hyponatremia likely
dehydration worsened by orthostasis
# Alcohol abuse
# Psychotic disorder
# Hypothyroidism
# Chronic hypotension
Diet As tolerated
Activity With assistance
Driving Restrictions No driving
Blood Work Recheck CBC, CMP and Magnesium outpatient this
week latest by 11/18/23
Instructions: Levofloxacin (Systemic)
Stand-Alone Forms:
Changes to Home Medications: Yes
Discharge Medications:
DC Medications w/original date entered in [facility]
carbamazepine 100 mg tablet,extended release,12 hr 200 mg (2 x 100 mg) PO HS 30 days 11/25/18
levothyroxine 50 mcg tablet 50 mcg PO DAILY@0700 30 days 11/25/18
carbamazepine 100 mg tablet,extended release,12 hr 100 mg PO DAILY Seizures 12/18/18
gabapentin 100 mg capsule 100 mg PO TID Neurological Condition 04/23/21
fludrocortisone 0.1 mg tablet 0.1 mg PO DAILY INFLAMMATION 10/22/22
acetaminophen 650 mg tablet,extended release (Tylenol Arthritis Pain) 650 mg PO Q6HPRN PRN mild pain 11/09/23
cyanocobalamin (vitamin B-12) 1,000 mcg tablet 1,000 mcg PO DAILY Supplement 11/09/23
oxybutynin chloride 10 mg tablet,extended release 24 hr 10 mg PO DAILY Urinary Issue 11/09/23
riboflavin (vitamin B2) 50 mg tablet 50 mg PO DAILY Supplement 11/09/23
thiamine HCl (vitamin B1) 100 mg tablet 100 mg PO DAILY Supplement 11/09/23
magnesium oxide 500 mg PO BID #60 tabs 11/16/23
midodrine 5 mg tablet 10 mg (2 x 5 mg) PO TID@0800,1300,1800 #180 tabs 11/16/23
potassium chloride 20 mEq tablet,extended release(part/cryst) 40 meq (2 x 20 mEq) PO BID #30 tabs 11/16/23
Home Medication Changes
Magnesium is new
Potassium is new
Midodrine dose increased - AVOID TAKING THIS AFTER EVENING MEAL OR WITHIN 4 HOURS OF BEDTIME AND HOLD FOR SYSTOLIC BLOOD PRESSURE GREATER THAN 120 mmHg
Tylenol and Oxybutynin held and should only be resumed if and only if primary care physician says okay to resume.
Pending Results: Yes
Additional Pending Results:
Final results of blood cultures from hospitalization
Total time spent discharging patient (in min): 40
--- NOTE | 2023-11-19 07:33 | W.DCSUMMARY ---
Discharge Summary
Discharge Data
Date of Admission: 11/09/23
Date of Discharge: 11/16/23
Total time spent discharging patient (in min): 40
-
Pending Results: Yes
Additional Pending Results:
Final results of blood cultures from hospitalization
Hospital Course
62 y/o male with past medical history of seizures, chronic Krueger catheter, hypertension, alcohol abuse, presented with generalized weakness. He was admitted with severe sepsis, septic shock, and started on broad spectrum antibiotics. Patient was
placed on vasopressor and Midodrine. Patient was also placed on stress dose steroids.
Infectious Disease was consulted, Vancomycin was stopped given no MRSA, and Zosyn continued. Patient was found to have polymicrobial bacteremia. Given rising white blood cell count, antibiotics were changed to Merrem. CT imaging of the chest,
abdomen and pelvis showed no source of infection (but please see official CT imaging report for further details).
Urology was consulted especially given patient's neurogenic bladder, and they recommended no urologic intervention at this time, and to keep the krueger catheter that was changed on November 09, 2023. There was a suggestion of bladder calculi on imaging,
for which urology recommended outpatient follow-up.
General surgery was consulted given that patient was found to have cholelithiasis on ultrasound and HIDA scan demonstrating filling of the gallbladder; there was no clinical concern for cholecystitis and no radiographic concern for cholecystitis,
and surgery noted no plan for surgical intervention.
Patient was also reported to have fallen on November 12, 2023. Per reports, he was trying to go and get a heavy bag, his legs felt weak and he fell slowly onto the ground, denying any head trauma or any other bodily injury.
Nephrology was consulted in the setting of patient's hyponatremia and hypomagnesemia, patient was already on Florinef, the plan was to continue his potassium and magnesium supplements, with close outpatient follow-up of his labwork.
He was discharged on Levaquin.
Discharge Plan
-
Patient Disposition: Home (Routine Discharge)
Discharge Diagnosis/Procedures: # Polymicrobial Bacteremia
# Complicated Urinary Tract Infection
# Severe sepsis/ septic shock due to catheter associated urinary tract infection
# Leukocytosis
# Hematuria/History of neurogenic bladder
# Hypokalemia - RESOLVED
# Hypomagnesemia
# Hepatic fatty infiltration. Possible alcoholic liver cirrhosis
# Thrombocytopenia secondary to sepsis - THROMBOCYTOPENIA RESOLVED
# Anemia of chronic disease
# Mild Hematuria
# Acute kidney injury
# Insomnia
# Fall recently
# Acute on chronic hyponatremia likely dehydration worsened by orthostasis
# Alcohol abuse
# Psychotic disorder
# Hypothyroidism
# Chronic hypotension
Condition: Fair
Diet: As tolerated
Activity: With assistance
Driving Restrictions: No driving
Blood Work: Recheck CBC, CMP and Magnesium outpatient this week latest by 11/18/23
Activity Restrictions/Additional Instructions:
When you see your primary care provider on 11/17/23, in addition to having you labwork rechecked as above, you need to have your electrocardiogram checked to make sure you do not have QTc prolongation in your heart/electrocardiogram [the antibiotic
you are taking, Levaquin (aka Levofloxacin), can prolong the QTc on an electrocardiogram and prolonged QTc can be dangerous]. See the Levofloxacin handout.
Take multivitamin as recommended by the vice president research
Cessation of alcohol as discussed
Wound Care Instructions
Sacrum: clean with saline or soap and water, Xeroform base of wound followed by silicone foam or gauze and paper tape. Change daily and prn soilage
L buttock and thigh: skin prep after cleaning and either silicone foam or exuderm thin change q 2-3 days and prn soilage.
air chair cushion when sitting, can take upon discharge
frequent turning when in bed onto sides.
Increase protein in diet for wound healing.
Follow up at wound care center call for an appointment.
Instructions: Levofloxacin (Systemic)
Referrals:
Timothy Blake MD [Family Provider] - in one day (Needs QTc checked on EKG as patient is on Levaquin and had low magnesium in hospital. Needs CBC, CMP and Magnesium rechecked.)
Additional Discharge Medication Instructions: Magnesium is new
Potassium is new
Midodrine dose increased - AVOID TAKING THIS AFTER EVENING MEAL OR WITHIN 4 HOURS OF BEDTIME AND HOLD FOR SYSTOLIC BLOOD PRESSURE GREATER THAN 120 mmHg
Tylenol and Oxybutynin held and should only be resumed if and only if primary care physician says okay to resume.
Prescriptions:
New
potassium chloride 20 mEq Tablet,Er Particles/Crystals
40 meq PO BID Qty: 30 0RF
magnesium oxide 500 mg magnesium Tablet
500 mg PO BID Qty: 60 0RF
midodrine 5 mg Tablet
10 mg PO TID@0800,1300,1800 Qty: 180 0RF
levofloxacin 750 mg tablet
750 mg PO DAILY Qty: 6 0RF
Rx Instructions:
Start on 11/17/23
Continued
carbamazepine 100 MG tablet extended release 12 hr
100 mg PO DAILY
gabapentin 100 MG capsule
100 mg PO TID
fludrocortisone 0.1 MG tablet
0.1 mg PO DAILY
cyanocobalamin (vitamin B-12) 1,000 mcg Tablet
1,000 mcg PO DAILY
thiamine HCl (vitamin B1) 100 mg Tablet
100 mg PO DAILY
riboflavin (vitamin B2) 50 mg Tablet
50 mg PO DAILY
carbamazepine 100 MG tablet extended release 12 hr
200 mg PO HS 30 Days 0RF
levothyroxine 50 MCG tablet
50 mcg PO DAILY@0700 30 Days 0RF
Held
oxybutynin chloride 10 mg Tablet Extended Release 24hr
10 mg PO DAILY
Hold Instructions: Resume on 12/31/23. Discuss with your primary care physician before resuming this medication as it can interact with potassium tablets.
acetaminophen [Tylenol Arthritis Pain] 650 mg tablet extended release
650 mg PO Q6HPRN PRN (Reason: mild pain)
Hold Instructions: Resume on 12/31/23. Discuss with your primary care physician if you can resume this medication.
Discontinued
midodrine 5 MG tablet
5 mg PO BID
Discharge Orders:
Discharge Patient (As Directed); Ordered 11/16/23
Ordered By: Travis Doyle
Discharge Date and Time
Discharge Date/Time: 11/16/23 19:51
Print Language: [id number]
== END 2023-11-16 19:51 | disposition home or self-care (01) | DRG 698 ==
LOC: 4 WEST ACU 15:51
PROVIDERS: Registered Nurse; ADMITTING PHYSICIAN Internal Medicine; ATTENDING PHYSICIAN Hospitalist; CONSULT PHYSICIAN Internal Medicine Infectious Disease; CONSULT PHYSICIAN Specialist; EMERGENCY PHYSICIAN Emergency Medicine; FAMILY PHYSICIAN Internal Medicine; OTHER PHYSICIAN Surgery
DX: T83.518A Infection and inflammatory reaction due to other urinary catheter, initial encounter (principal); A41.50 Gram-negative sepsis, unspecified; L89.153 Pressure ulcer of sacral region, stage 3; R65.21 Severe sepsis with septic shock; N39.0 Urinary tract infection, site not specified; E87.1 Hypo-osmolality and hyponatremia; N17.9 Acute kidney failure, unspecified; Z11.52 Encounter for screening for COVID-19; Y84.6 Urinary catheterization as the cause of abnormal reaction of the patient, or of later complication, without mention of misadventure at the time of the procedure; D63.8 Anemia in other chronic diseases classified elsewhere; F29 Unspecified psychosis not due to a substance or known physiological condition; E03.9 Hypothyroidism, unspecified; E83.42 Hypomagnesemia; F10.20 Alcohol dependence, uncomplicated; I95.1 Orthostatic hypotension; I10 Essential (primary) hypertension; E87.6 Hypokalemia; D69.59 Other secondary thrombocytopenia; L89.322 Pressure ulcer of left buttock, stage 2
CPT/HCPCS: 71045; 71260; 74177; 76700; 76775; 78226; 80048; 80053; 80306; 81003; 81015; 82010; 82077; 82977; 83605; 83735; 83930; 83935; 84100; 84300; 85025; 85027; 85610; 85730; 87040; 87070; 87077; 87086; 87147; 87186; 87205; 87502; 87811; 93005; 96361; 96365; 97163; 97167; 97530; 99291; A9537; Q9967

== ENCOUNTER 2024-09-19 13:00 | Outpatient (RCR) | payer OTHER, SELFPAY | END 2024-09-19 23:59 | disposition home or self-care (01) | LOC: RPT 13:00 | PROVIDERS: ATTENDING PHYSICIAN Internal Medicine | DX: M79.605 Pain in left leg (principal); R26.2 Difficulty in walking, not elsewhere classified; Z73.6 Limitation of activities due to disability; R26.89 Other abnormalities of gait and mobility; M25.552 Pain in left hip; M25.551 Pain in right hip; R20.0 Anesthesia of skin; Z91.81 History of falling | CPT/HCPCS: 97110; 97112; 97116; 97162; 97530 ==

== ENCOUNTER 2024-10-20 13:34 | Outpatient (RCR) | payer OTHER, SELFPAY | END 2024-10-20 23:59 | disposition home or self-care (01) | LOC: RPT 13:34 | PROVIDERS: ATTENDING PHYSICIAN Internal Medicine | DX: M79.605 Pain in left leg (principal); R26.2 Difficulty in walking, not elsewhere classified; Z73.6 Limitation of activities due to disability; R26.89 Other abnormalities of gait and mobility; M25.552 Pain in left hip; M25.551 Pain in right hip; R20.0 Anesthesia of skin; Z91.81 History of falling | CPT/HCPCS: 97110; 97112; 97116; 97530 ==

== ENCOUNTER → 2024-11-20 11:15 | Outpatient (REF) | payer OTHER, SELFPAY | LOC: PAVMRI 11:15 | PROVIDERS: ATTENDING PHYSICIAN Internal Medicine | DX: G89.29 Other chronic pain (principal); M54.50 Low back pain, unspecified; R53.1 Weakness; R29.6 Repeated falls | CPT/HCPCS: 72148 ==

== ENCOUNTER → 2025-03-24 15:03 | Outpatient (REF) | payer OTHER, SELFPAY | LOC: MRI 3T 15:03 | PROVIDERS: ATTENDING PHYSICIAN Physician Assistant Surgical; FAMILY PHYSICIAN Internal Medicine | DX: M48.062 Spinal stenosis, lumbar region with neurogenic claudication (principal); M43.16 Spondylolisthesis, lumbar region; Z98.1 Arthrodesis status; S32.012D Unstable burst fracture of first lumbar vertebra, subsequent encounter for fracture with routine healing; R26.9 Unspecified abnormalities of gait and mobility | CPT/HCPCS: 72141; 72146 ==

== ENCOUNTER → 2025-06-29 12:14 | Outpatient (REF) | payer OTHER, SELFPAY | LOC: RAD 12:14 | PROVIDERS: ATTENDING PHYSICIAN Orthopaedic Surgery; FAMILY PHYSICIAN Internal Medicine | DX: M48.062 Spinal stenosis, lumbar region with neurogenic claudication (principal); Z98.1 Arthrodesis status | CPT/HCPCS: 72128; 72131 ==